=== PATIENT | female | born 1935 | race Hispanic/Latino ===

== ENCOUNTER 2020-06-01 14:33 | Outpatient (CLI) | payer MEDICARE, SELFPAY ==
--- NOTE | ~2020-06-01 | MM_ITS ---
EXAMINATION: MM screening [facility] BI w ronaldo HISTORY: Screening mammogram TECHNIQUE: Craniocaudal and mediolateral oblique 3-D tomosynthesis images were obtained and synthetic 2-D images were generated. CAD analysis was submitted and interpreted. COMPARISON: 05/11/2019, 05/08/2018, 05/05/2017 BREAST PARENCHYMAL COMPOSITION: There are scattered areas of fibroglandular density. FINDINGS: There is no evidence of suspicious mass, calcification, or architectural distortion to sugg est malignancy in either breast. There has been no suspicious interval change. IMPRESSION: 1. No mammographic evidence of malignancy. 2. Recommend routine screening mammography while the patient remains in good health. BI-RADS Category 1: Negative Reviewed, dictated and finalized at location A. IMPRESSION: 1. No mammographic evidence of malignancy. 2. Recommend routine screening mammography while the patient remains in good he alth. BI-RADS Category 1: Negative
== END 2020-06-01 14:34 | disposition home or self-care (01) ==
LOC: ANHIMG 14:37
PROVIDERS: PCP Family Medicine; Visit Provider Obstetrics & Gynecology
DX: Z12.31 Encounter for screening mammogram for malignant neoplasm of breast (principal)
CPT/HCPCS: 77063; 77067

== ENCOUNTER 2021-01-31 12:33 | Outpatient (CLI) | payer OTHER, SELFPAY ==
--- NOTE | ~2021-01-31 | DEXA_ITS ---
Bone Density Report Name: Jeimy Romano Age: 85 Sex: Female Ethnicity: White Date of : 1935 Indication: postmenopausal; height loss; prior fracture; Referring Provider: Bryn Nicolas Study: Bone densitometry was performed. Exam Date: January 31, 2021 Accession number: [id number] Bone Density: Region BMD T-score Z-score Classification AP Spine (L1-L4) 0.974 -0.7 2.1 Normal Femoral Neck (Left) 0.553 -2.7 -0.2 Osteoporosis Total Hip (Left) 0.775 -1.4 0.9 Osteopenia Total Hip Bilateral Avg 0.786 -1.3 0.9 Osteopenia Femoral Neck (Right) 0.594 -2.3 0.1 Osteopenia Total Hip (Right) 0.797 -1.2 1.0 Osteopenia World Health Organization criteria for BMD impression classify patients as: Normal (T-score at or above -1.0), Osteopenia (T-score between -1.0 and -2.5), or Osteoporosis (T-score at or below -2.5). 10-year Fracture Risk: FRAX not reported because: Some T-score for Spine Total or Hip Total or Femoral Neck at or below -2.5 Clinical Information Provided by Patient: Has had a low trauma fracture Has used the following medications: Fosamax (i.e. alendronate), Vitamin D, Calcium Patient maximum height was 64 Menopause Age: 52 No regular weight bearing exercise Drinks caffeinated beverages Onset of menses at age 15 Number of children 3 Impression: The patient has established osteoporosis, based on the Left Femoral Neck T-score and the existence of a prior fracture. The patient has risk factors, including: previous fracture. Discussion: HIGH RISK OF FRACTURE. BONE DENSITY IS UNDESIRABLY LOW AT ONE OR MORE SKELETAL SITES, CONSISTENT WITH POSTMENOPAUSAL OSTEOPOROSIS. This patient's lowest T-score, in a patient who has previously fractured, meets the World Health Organization's (WHO) criteria for severe osteoporosis. In untreated patients, the risk of osteoporotic fracture increases approximately two-fold for each 1.0 SD decrease in T-score. Low bone density is not the only risk factor for fracture; also consider factors such as patient's age, frailty or poor health, risk of falling, risk of injury, previous osteoporotic fracture, family history of osteoporosis, cigarette smoking, low body weight, etc. Not everyone with low bone mineral density has osteoporosis; osteomalacia and other metabolic bone disorders should also be considered. Patients who have osteoporosis should be evaluated for specific diseases and conditions (secondary causes) that may cause or contribute to bone loss. The [place] [employer] Endocrinologists (AACE) and National Osteoporosis Foundation (NOF) recommend pharmacologic intervention for all postmenopausal women whose T-score is in this range. The patient should follow a healthful lifestyle (good nutrition with adequate calcium and vitamin D, and appropriate weight-bearing exercise).
== END 2021-01-31 12:34 | disposition home or self-care (01) ==
PROVIDERS: PCP Family Medicine; Visit Provider Family Medicine
DX: Z78.0 Asymptomatic menopausal state (principal); M81.0 Age-related osteoporosis without current pathological fracture; M85.852 Other specified disorders of bone density and structure, left thigh; M85.851 Other specified disorders of bone density and structure, right thigh
CPT/HCPCS: 77080

== ENCOUNTER 2021-06-04 14:43 | Outpatient (CLI) | payer OTHER, SELFPAY ==
--- NOTE | ~2021-06-04 | MM_ITS ---
EXAMINATION: MM screening [facility] BI w ronaldo HISTORY: Screening TECHNIQUE: Craniocaudal and mediolateral oblique 3-D tomosynthesis images were obtained and synthetic 2-D images were generated. CAD analysis was submitted and interpreted. COMPARISON: Comparison to multiple prior studies sequentially, with oldest reviewed study dated 05/01. BREAST PARENCHYMAL COMPOSITION: There are scattered areas of fibroglandular density. FINDINGS: There is no evidence of suspicious mass, calcification, or architectural distortion to sugg est malignancy in either breast. There has been no suspicious interval change. IMPRESSION: 1. No mammographic evidence of malignancy. 2. Recommend routine screening mammography in one year. BI-RADS Category 1: Negative Reviewed, dictated and finalized at location A.
== END 2021-06-04 14:44 | disposition home or self-care (01) ==
LOC: ANHIMG 14:45
PROVIDERS: PCP Family Medicine; Visit Provider Family Medicine
DX: Z12.31 Encounter for screening mammogram for malignant neoplasm of breast (principal)
CPT/HCPCS: 77063; 77067

== ENCOUNTER 2022-01-06 21:49 | Inpatient (IN) | payer OTHER, SELFPAY ==
--- NOTE | ~2022-01-06 | CT_ITS ---
EXAMINATION: CT abdomen pelvis w con DATE: 01/06/2022 23:31 INDICATION: Epigastric abdominal pain. Vomiting. TECHNIQUE: Computed tomography (CT) of the abdomen and pelvis was performed with 100 mL Omnipaque 350 intravenous contrast. Automated exposure control and iterative reconstruction technique were employe d. The dose-length product was 571.94 mGy-cm. COMPARISON: CT abdomen and pelvis 09/14/2010 FINDINGS: The visualized portions of the lung bases demonstrate mild atelectasis. There are two 5 mm nodules in right lung lower lobe, likely benign. No pleural effusion. The heart size is normal. No pe ricardial effusion. The gallbladder is distended. There is mild intrahepatic and extrahepatic biliary duct dilatation. The spleen, pancreas, and adrenal glands are normal. There is cortical thinning of the kidneys. There is a 5 mm cyst in right kidney. There is diverticulosis of the colon without evide nce of diverticulitis. The appendix is normal. There are no pathologically enlarged lymph nodes. Ther e is no free intraperitoneal fluid. There is an umbilical hernia containing fat. There is severe lumb ar spondylosis. IMPRESSION: 1. Gallbladder distention, which may secondary to fasting or acute cholecystitis. Correlate with phys ical exam. 2. Mild intrahepatic and extrahepatic biliary duct dilatation. 3. Umbilical hernia containing fat. Reviewed, dictated and finalized at location A. IMPRESSION: 1. Gallbladder distention, which may secondary to fasting or acute cholecystiti s. Correlate with physical exam. 2. Mild intrahepatic and extrahepatic biliary duct dilatation. 3. Umbilical hernia containing fat.
--- NOTE | ~2022-01-06 | XR_ITS ---
EXAMINATION: XR ERCP EXAM DATE: 01/08/2022 13:56 INDICATION: Choledocholithiasis. Gallbladder wall thickening, edema TECHNIQUE: Fluoroscopy used during XR ERCP performed by Dr. Aguila Ashby MD. Radiologist was no t present for the imaging or procedure. Total fluoroscopic time of 62 seconds. The DAP for this pro cedure was 0.52 mGym2. A total of 0.52 images sent to PACS from the exam. FINDINGS: The ampulla of Vater was cannulated, injected. No common bile duct filling defects or foca l strictures were identified on images available. Correlate with procedure note. IMPRESSION: Fluoroscopy used during XR ERCP. Reviewed, dictated and finalized at location A.
--- NOTE | ~2022-01-06 | MR_ITS ---
EXAMINATION: MR MRCP wo/w con/w 3D wo ind DATE: 01/07/2022 15:30 INDICATION: Abdominal pain. Elevated liver function tests. TECHNIQUE: Magnetic resonance imaging (MRI) of the abdomen was performed without and with 14 mL Multi jeovanny intravenous contrast. Sequences included coronal T2-weighted SS-FSE, coronal T2-weighted FS SS- FSE, coronal T2-weighted FS FIESTA, axial T2-weighted FS FIESTA, axial T2-weighted FIESTA, sagittal T 2-weighted SS-FSE, axial T1-weighted dual-echo FSPGR, axial T2-weighted SS-FSE, axial T1-weighted LAV A, axial T2-weighted STIR FSE. Thick-slab T2-weighted FRFSE-XL images were obtained for magnetic reso nance cholangiopancreatography (MRCP). Rotating maximum intensity projection 3-D reconstructions of t he volumetric data were created by the technologist. Postcontrast sequences included a time course of axial T1-weighted LAVA. COMPARISON: None. FINDINGS: ABDOMEN MRI: Heart size is normal. No pericardial or pleural effusion. Likely mild atelectasis at the lingula. 5 m m T2 hyperintense nonenhancing cysts at the caudal tip of the right hepatic lobe. Mild periportal tera ma in the liver. There is prominent edematous gallbladder wall thickening which measures up to 11 mm in thickness. No cholelithiasis. The pancreatic and interstitial pancreatic edema greatest at the hea d and uncinate process of the pancreas suspicious for acute interstitial pancreatitis. No loculated a cute peripancreatic fluid collections or abscess. T2 hyperintense nonenhancing renal cysts measuring 5 mm on the right and 6 mm on the left. Visualized portions of the bowels are normal. No pathological ly enlarged abdominal lymphadenopathy. Moderate to severe lumbar spondylosis. ABDOMEN MRCP: Common bile duct measures up to 7 mm in maximal diameter. Mild periportal edema. No significant intra hepatic biliary ductal dilation. The main pancreatic duct is normal in caliber. IMPRESSION: 1. Nonspecific prominent edematous-appearing gallbladder wall thickening without evident cholelithias is. Differential would include acute acalculus cholecystitis, reactive edema related to interstitial pancreatitis or edema related to heart failure, liver failure, renal failure, sepsis or other general ized edema forming states. 2. Nonspecific peripancreatic and pancreatic interstitial edema which could be due to acute interstit ial pancreatitis or other nonspecific edema related to the same etiology as the gallbladder wall thic feliz. Reviewed, dictated and finalized at location B. IMPRESSION: 1. Nonspecific prominent edematous-appearing gallbladder wall thickening withou t evident cholelithiasis. Differential would include acute acalculus cholecysti tis, reactive edema related to interstitial pancreatitis or edema related to he art failure, liver failure, renal failure, sepsis or other generalized edema fo rming states. 2. Nonspecific peripancreatic and pancreatic interstitial edema which could be due to acute interstitial pancreatitis or other nonspecific edema related to th e same etiology as the gallbladder wall thickening.
--- NOTE | ~2022-01-06 | XR_ITS ---
EXAMINATION: XR chest 2V EXAM DATE: 01/09/2022 09:20 INDICATION: Cough. TECHNIQUE: Frontal and lateral projections of the chest obtained and reviewed. Comparison is made to prior examination from 01/05/2009. Correlation was made with CT abdomen pelvis 01/06/2022. FINDINGS: Some small scattered left lower lobe opacities which are not present on prior study, also left pleural blunting which is probably a small pleural effusion. These findings may also have develo ped correlating to a CT scan from 3 days ago. The lungs are hyperinflated which can be seen with [employer] howard obstructive pulmonary disease (a clinical diagnosis of functional impairment), but is not diagnos tic of it. There is no pneumothorax suspected. Cardiomediastinal silhouette is normal. There are no o sseous abnormalities identified. IMPRESSION: 1. Scattered left basilar atelectasis or pneumonia. 2. Small left pleural effusion. 3. Hyperinflation. Reviewed, dictated and finalized at location A.
--- NOTE | ~2022-01-06 | US_ITS ---
EXAMINATION: US abdomen limited EXAM DATE: 01/07/2022 08:22 INDICATION: RUQ pain, epigastric pain, transaminitis. TECHNIQUE: Multiple grayscale and Doppler images of the abdomen right upper quadrant were obtained (b y a technologist who performed the scan) and subsequently reviewed. Correlation is made to CT from 01/06/2022. FINDINGS: The pancreatic head and body are normal in appearance. The pancreatic tail is not visualized. The l iver has normal echogenicity and contour. There are no focal liver lesions identified. There is no evidence of intrahepatic biliary duct dilation. Portal venous flow was seen in the hepatopedal, nor mal direction and has normal Doppler waveform. No right-sided hydronephrosis. Common bile duct measures 5 mm, which is normal. The gallbladder wall is severely thickened at up to 10 mm with small anechoic cystic spaces. Differential diagnosis includes interstitial edema, chronic liver disease, acute or chronic cholecystitis. No calcified cholelithiasis. Technologist performin g exam reports patient did not demonstrate sonographic Malone's sign. Please note that this sign is less reliable in patients who have received pain medication. IMPRESSION: Severely thickened gallbladder wall, moderate distention. Differential diagnosis includes interstitial edema, chronic liver disease, acute or chronic cholecystitis. No sonographic Malone's s ign was demonstrated. Clinical correlation, consider HIDA scan. Reviewed, dictated and finalized at location A. IMPRESSION: Severely thickened gallbladder wall, moderate distention. Different ial diagnosis includes interstitial edema, chronic liver disease, acute or senior front end web developer howard cholecystitis. No sonographic Malone's sign was demonstrated. Clinical kalee elation, consider HIDA scan.
[2022-01-06 21:53] VITALS: BP 141/67; PULSE 74; RESP 18; TEMP 36.2; O2SAT 100
--- NOTE | 2022-01-06 22:06 | ECG_ITS ---
Measurements Intervals [employer] Rate: 62 P: 63 UT: 180 QRS: -2 QRSD: 93 T: 61 QT: 424 QTc: 433 Interpretive Statements SINUS RHYTHM LOW QRS VOLTAGE IN PRECORDIAL LEADS Electronically Signed On 01-07-2022 14:27:48 CDT by Mike Frost M.D.
[2022-01-06 22:26] VITALS: BP 113/61; PULSE 65; RESP 18; O2SAT 97
--- NOTE | 2022-01-06 22:47 | ED.ABDPAIN ---
HPI - Abdominal Pain General Chief Complaint: Abdominal Pain Stated Complaint: epigastric pain, nausea Time Seen by Provider: 01/06/22 22:05 Source: patient Mode of arrival: ambulatory Limitations: no limitations History of Present Illness HPI narrative: This is an 86-year-old female that presents to the emergency department for epigastric pain noted over the last couple of hours. Associated with nausea and vomiting. Reports the pain is sharp in nature. Denies fever, shortness of breath, diarrhea, or dysuria. Related Data Allergies Allergy/AdvReac Type Severity Reaction Status Date / Time No Known Allergies Allergy Unknown NONE Verified 12/31/21 13:21 Review of Systems Review of Systems: CONSTITUTIONAL: Denies fever CARDIOVASCULAR: Reports chest/epigastric pain RESPIRATORY: Denies dyspnea. GASTROINTESTINAL: Reports abdominal pain, nausea, vomiting GENITOURINARY: Denies dysuria All systems reviewed & are unremarkable except as noted in HPI and below PMFSH Past Medical History Medical History (Updated 01/07/22 @ 00:56 by Suzie Downs PA-C) Acquired hypothyroidism CKD (chronic kidney disease), stage III Gastro-esophageal reflux disease without esophagitis Hy kid NOS w cr kid I-IV Obesity Pure hypercholesterolemia Surgical History Surgical History History of tonsillectomy Family History Family History Sibling Patient's sister is in good health Patient's brother is in good health Hypertension Family history of diabetes mellitus in first degree relative Family history of primary malignant neoplasm of liver Father Family history of malignant neoplasm Mother Family history of malignant neoplasm Social History Social History Smoking status: Never smoker Second hand tobacco smoke exposure: No Alcohol intake: current Drinks per week: 1 Substance use: never Substance use type: does not use Gender identity (if verbalized by the patient): Female Sexual Orientation (if Verbalized by the Patient): Straight or Heterosexual Exam Narrative: GENERAL: Elderly, well-nourished, and in no acute distress. HEAD: Normocephalic, atraumatic. EYES: EOMI. CHEST: Clear to auscultation. No respiratory distress. No wheezes rales or rhonchi HEART: Regular rate and rhythm. No murmur heard. Normal peripheral pulses. ABDOMEN: Soft, nondistended, normal active bowel sounds. Tender to palpation in the epigastrium and right upper quadrant, without guarding EXTREMITIES: Normal range of motion. No edema. SKIN: Warm, dry, no rash. NEURO: No focal deficits. Alert and oriented x3. PSYCH: Normal mood and affect Course Consultations Consultation #1: Spoke with general surgery, Dr. Sheppard who will consult. Would like ultrasound ordered and repeat labs. Date: 01/07/22 Consultation #2: Spoke with hospitalist about patient and work-up who accepts admission Date: 01/07/22 Vital Signs Vital signs: Vital Signs Temperature 97.2 F L 01/06/22 21:53 Pulse Rate 74 01/06/22 21:53 Respiratory Rate 18 01/06/22 21:53 Blood Pressure 141/67 H 01/06/22 21:53 Pulse Oximetry 100 01/06/22 21:53 Temperature 97.2 F L 01/06/22 21:53 Pulse Rate 70 01/07/22 00:28 Respiratory Rate 20 01/07/22 00:28 Blood Pressure 114/54 L 01/07/22 00:28 Pulse Oximetry 98 01/07/22 00:28 MDM - Abdominal Pain MDM Narrative Medical decision making narrative: Patient presents to the emergency department for epigastric pain, nausea and vomiting. Onset this evening. She is afebrile and nontoxic-appearing. CBC with leukocytosis to 11.6. Metabolic panel with hypokalemia and transaminitis. Lipase is normal. EKG without acute ST changes and baseline troponin is negative. CT scan of the abdomen and pelvis shows gallbladder distention with subtle focal irregular wall thic
[2022-01-06 22:55] LABS: Basophils Absolute Auto 0.1 K/mm3 (0.0-0.1); Basophils Percent Auto 0.7 % (0.2-1.2); Eosinophils Absolute Auto 0.2 K/mm3 (0-0.3); Eosinophils Percent Auto 1.7 % (0-4.4); Hematocrit 35.8 % (37.0-47.0); Hemoglobin 12.6 g/dL (12.0-15.0); Immature Granulocyte Absolute 0.05 K/mm3 (0.00-0.031); Immature Granulocyte Percent A 0.4 % (0-0.5); Lymphocytes Absolute Auto 1.94 K/mm3 (0.9-3.2); Lymphocytes Percent Auto 16.7 % (18.3-44.2); Mean Corpuscular HGB Conc 35.2 g/dl (32-36); Mean Corpuscular Hemoglobin 32.8 pg (26-34); Mean Corpuscular Volume 93.2 fl (80-100); Mean Platelet Volume 9.4 fl (7.4-10.4); Monocytes Absolute Auto 0.8 K/mm3 (0.1-0.6); Neutrophils Absolute Auto 8.6 K/mm3 (1.3-6.7); Neutrophils Percent Auto 73.5 % (45.5-73.1); Platelet Count Result 291 k/mm3 (150-375); Red Blood Count 3.84 M/mm3 (4.2-5.4); Red Cell Distribution Width 12.3 % (11.5-14.5); White Blood Count 11.6 K/mm3 (4.5-10.0)
[2022-01-06 23:01] LABS: Add Urine Microscopic? NO; Appearance Urine Clear (Clear); Bilirubin Urine Negative (Negative); Blood Urine Negative (Negative); Color Urine Yellow (Yellow); Glucose Urine UA Negative (Negative); Ketones Urine Negative (Negative); Leukocyte Esterase Ur Negative LEU/UL (Negative); Nitrate Urine Negative (Negative); Protein Urine Negative (Negative); Specific Grav Ur 1.013 (1.001-1.035); Urobilinogen Urine Negative mg/dL (<2.0)
[2022-01-06 23:05] LABS: Prothrombin Time 12.4 Seconds (11.1-14.7)
[2022-01-06 23:06] LABS: Alanine Aminotransferase 83 U/L (4-35); Albumin Level 4.4 g/dL (3.5-5.1); Alkaline Phosphatase 57 U/L (38-126); Anion Gap 7 mmol/L (8-16); Aspartate Amino Transferase 226 U/L (14-36); Bilirubin,Total 1.1 mg/dL (0.2-1.3); Blood Urea Nitrogen 11 mg/dL (7-17); Calcium 9.1 mg/dL (8.4-10.2); Carbon Dioxide 25 mmol/L (22-30); Chloride 96 mmol/L (98-107); Estimated CRCL calculation 38 ml/min; Estimated Glomerular Filt Rate 60; Glucose 134 mg/dL (65-110); Lipase 133 U/L (23-300); Partial Thromboplastin Time 27.1 SECONDS (22.3-36.8); Potassium 3.2 mmol/L (3.4-5.0); Sodium 128 mmol/L (137-145)
[2022-01-06 23:36] VITALS: BP 123/52; PULSE 69; RESP 18; O2SAT 100
[2022-01-06] MEDS: ONDANSETRON INJ 4 MG/2 ML VIAL IV PUSH (23:37)
[2022-01-06] MEDS: MORPHINE SULFATE (*CRX) 2 MG/ML INJ IV PUSH (23:37)
[2022-01-06 23:38] LABS: Troponin I < 0.012 ng/mL (0.000-0.034)
[2022-01-07] VITALS (7 sets, daily range): BP systolic 105–138; BP diastolic 51–64; PULSE 69–97; RESP 14–20; TEMP 36.2–37.7; O2SAT 92–99; BMI 29.2
[2022-01-07] MEDS: SODIUM CHLORIDE 0.9% IV 500 ML 999 ML IV CONT (00:26)
[2022-01-07 00:38] LABS: Lactic Acid Reflex 1.2 mmol/L (0.7-2.1)
--- NOTE | 2022-01-07 02:07 | ADMGEN ---
This patient, Jeimy Romano, was admitted to [facility] Surg Room 329-01 at 0200. Patient/family oriented to hospital policies and general routines including ID bracelet, bed and alarms, visiting hours, pain management, procedures, bathroom and other care routines, personal items, smoking policy, room service/diet, and visiting hours. Information on how to activate the Rapid Response Team has been discussed. Patient/Family are encouraged to report perceived risks to care and to ask questions if they do not understand what they are told or what they should do.
[2022-01-07] MEDS: POTASSIUM CHLORIDE INJ 40 MEQ in SODIUM CHLORIDE 0.9% IV 500 ML 130 MEQ IVPB (02:52)
--- NOTE | 2022-01-07 09:01 | PM.IMHP ---
H&P: HPI History of Present Illness Date/Time: 01/07/22 0850 This very pleasant 86 year old female patient with significant PMH of Osteoporosis, HTN, GERD, hypothyroidism and HLD, presented to the ER last evening with complaints of having acute abdominal pain. She endorses that she ate Vegetable soup at 1700 last evening then began having acute pain in the epigastric and RUQ regions around 1900 with associated N/V. She denies any fevers, sick contacts, diarrhea or any other complaints such as CP. She came to the ER where workup showed a normal EKG, negative troponin's, a mildly elevated WBC count of 11.6, elevated transaminases with AST at 226 and ALT at 83, negative urine, and normal Lipase at 133. She is also hyponatremic at 128. CT of abdomen and pelvis showed gall bladder distention with thickening in a focal location in the front. The CBD and intrahepatic ducts are prominent and measure up to [address] Sheppard was consulted for General Surgery and he ordered an US of the RUQ that showed a severely thickened gallbladder wall, moderate distention present. The differential diagnosis includes interstitial edema, chronic liver disease, acute or chronic cholecystitis. The pt at this time continues to complain of pain in the epigastric regions and in the RUQ. She has nausea currently. No other complaints such as CP, dyspnea or urinary issues to report. Chief Complaint: Abdominal Pain Review of Systems Review of Systems: All systems reviewed & are unremarkable except as noted in HPI and below PMFSH Past Medical History Medical History (Updated 01/07/22 @ 09:13 by MARY Gallardo) Acquired hypothyroidism CKD (chronic kidney disease), stage III Gastro-esophageal reflux disease without esophagitis Hy kid NOS w cr kid I-IV Hypertension Obesity Pure hypercholesterolemia Surgical History Surgical History History of tonsillectomy Family History Family History Sibling Patient's sister is in good health Patient's brother is in good health Hypertension Family history of diabetes mellitus in first degree relative Family history of primary malignant neoplasm of liver Father Family history of malignant neoplasm Mother Family history of malignant neoplasm Social History Social History Smoking status: Never smoker Second hand tobacco smoke exposure: No Alcohol intake: never Drinks per week: 1 Substance use: never Substance use type: does not use Gender identity (if verbalized by the patient): Female Sexual Orientation (if Verbalized by the Patient): Straight or Heterosexual Spiritual care concerns: No Meds Home Medications and Allergies Home Medications Medication Instructions Recorded Confirmed Type pravastatin 40 mg tablet 40 mg PO QPM #90 tablet 10/01/21 01/07/22 Rx alendronate 70 mg tablet 70 mg PO WEEKLY #12 tablet 10/22/21 01/07/22 Rx hydrochlorothiazide 12.5 mg capsule 12.5 mg PO DAILY #90 cap 11/01/21 01/07/22 Rx levothyroxine 75 mcg tablet 75 mcg PO DAILY #90 tablet 11/13/21 01/07/22 Rx famotidine 40 mg tablet 40 mg PO DAILY #90 tablet 12/31/21 01/07/22 Rx amlodipine 10 mg PO DAILY 01/07/22 01/07/22 History Allergies Allergy/AdvReac Type Severity Reaction Status Date / Time No Known Allergies Allergy Unknown NONE Verified 12/31/21 13:21 Vital Signs Vital Signs - 24 hr 01/06/22 21:53 01/06/22 22:26 01/06/22 23:36 Temperature 97.2 F L Pulse Rate 74 65 69 Respiratory Rate 18 18 18 Blood Pressure 141/67 H 113/61 123/52 L Pulse Oximetry 100 97 100 01/07/22 00:28 01/07/22 01:06 01/07/22 02:00 Temperature 97.1 F L Pulse Rate 70 69 86 Respiratory Rate 20 18 18 Blood Pressure 114/54 L 133/58 L 138/64 Pulse Oximetry 98 98 99 01/07/22 06:00 Temperature 98.1 F Pulse Rate 97 Respirato
[2022-01-07 10:06] LABS: Basophils Percent Auto 0.2 % (0.2-1.2); Eosinophils Percent Auto 0.1 % (0-4.4); Hematocrit 34.9 % (37.0-47.0); Immature Granulocyte Absolute 0.05 K/mm3 (0.00-0.031); Immature Granulocyte Percent A 0.4 % (0-0.5); Lymphocytes Absolute Auto 0.63 K/mm3 (0.9-3.2); Lymphocytes Percent Auto 4.7 % (18.3-44.2); Mean Corpuscular HGB Conc 34.4 g/dl (32-36); Mean Corpuscular Hemoglobin 32.7 pg (26-34); Mean Corpuscular Volume 95.1 fl (80-100); Mean Platelet Volume 9.6 fl (7.4-10.4); Monocytes Absolute Auto 0.5 K/mm3 (0.1-0.6); Monocytes Percent Auto 3.7 % (2.6-8.5); Neutrophils Absolute Auto 12.2 K/mm3 (1.3-6.7); Neutrophils Percent Auto 90.9 % (45.5-73.1); Platelet Count Result 262 k/mm3 (150-375); Red Blood Count 3.67 M/mm3 (4.2-5.4); Red Cell Distribution Width 12.6 % (11.5-14.5); White Blood Count 13.4 K/mm3 (4.5-10.0)
[2022-01-07 10:36] LABS: Albumin Level 3.8 g/dL (3.5-5.1); Alkaline Phosphatase 71 U/L (38-126); Anion Gap 7 mmol/L (8-16); Bilirubin,Total 2.2 mg/dL (0.2-1.3); Blood Urea Nitrogen 11 mg/dL (7-17); Calcium 8.5 mg/dL (8.4-10.2); Carbon Dioxide 24 mmol/L (22-30); Chloride 99 mmol/L (98-107); Estimated CRCL calculation 34 ml/min; Estimated Glomerular Filt Rate 53; Glucose 119 mg/dL (65-110); Potassium 3.8 mmol/L (3.4-5.0); Sodium 130 mmol/L (137-145)
[2022-01-07 11:00] LABS: Alanine Aminotransferase 1066 U/L (4-35); Aspartate Amino Transferase 1809 U/L (14-36)
[2022-01-07] MEDS: SODIUM CHLORIDE 0.9% IV 1,000 ML 100 ML IV CONT ×2 (11:03→23:29)
--- NOTE | 2022-01-07 11:21 | PM.CNGS ---
Assessment and Plan Assessment and plan (1) Acute cholecystitis: Code(s): K81.0 - Acute cholecystitis Status: Acute Assessment and Plan: CT and RUQ ultrasound reviewed and discussed with the patient in detail. There is evidence of gallbladder wall thickening and distention, but no definitive cholelithiasis noted. Also noted was mild intrahepatic and extrahepatic biliary duct dilatation on CT, although normal CBD on US. Her abdominal pain is resolving, although her WBC is up to 13K and LFTs are trending up this morning. Will order MRCP and consult GI. Discussed treatment plan with the patient. Continue broad-spectrum IV antibiotics, IV fluids, analgesics, and NPO status. Will await MRCP results to decipher further plan of care. (2) Transaminitis: Code(s): R74.01 - Elevation of levels of liver transaminase levels Status: Acute Assessment and Plan: AST and ALT mildly elevated on admission. Repeat labs today showed total bilirubin up to 2.2 and AST/ALT significantly elevated. Will order MRCP, consult GI, and keep patient NPO. (3) Hyponatremia: Code(s): E87.1 - Hypo-osmolality and hyponatremia Status: Acute Assessment and Plan: Sodium 128 on admission and now up to 130. Continue IV fluids, management per hospitalist, monitor labs. (4) Hypertension: Qualifiers: Hypertension type: unspecified Qualified Code(s): I10 - Essential (primary) hypertension Code(s): I10 - Essential (primary) hypertension Status: Acute Assessment and Plan: Management per Hospitalist. Home medications on hold while NPO. Additional Plan I have discussed the patient's case and plan of care with Dr. Sheppard. History of Present Illness Consult details Consult date: 01/07/22 Reason for consult: other (Possible acute cholecystitis, elevated LFTs) Requesting physician: Suzie Downs PA-C Narrative: This is an 86-year-old female who presented to the emergency department last night complaining of epigastric abdominal pain. She reports eating vegetable soup and crackers around 5:00 p.m. last night. She then had a sudden onset of epigastric abdominal pain radiating to her back around 7:00 p.m.. She reports associated nausea and chills, but no vomiting at home. The pain ultimately lead her to the ER for evaluation. While in the ER, she began vomiting. She reports having a similar pain that was more mild and resolved spontaneously a few times in the past. CT scan of the abdomen and pelvis showed gallbladder distention without evidence of cholelithiasis, and mild intrahepatic and extrahepatic biliary duct dilatation. [place] [address], sodium 128, potassium 3.2, total bilirubin 1.1, AST 226, ALT 83, alk-phos 57, normal lipase, and lactic acid 1.2. The patient was admitted to the hospitalist service and started on IV Zosyn, IV fluids, analgesics, and made NPO. Our service has been consulted for possible acute cholecystitis with elevated LFTs. Right upper quadrant abdominal ultrasound showed severely thickened gallbladder wall with moderate distension and still no calcified cholelithiasis noted. The patient is now seen on the medical floor. I ordered repeat labs today. She reports her abdominal pain has nearly resolved, with just some residual soreness in the epigastric area following her ultrasound this morning. She is still having intermittent nausea that is very mild and has not vomited since being in the ER. She reports her bowels have been moving normally. No other complaints at this time. Review of Systems Review of Systems: All systems reviewed & are unremarkable except as noted in HPI and below Constitutional: Constitutional: Reports as per HPI, Reports chills, Denies fatigue and Denies fever(s) Eyes: Eyes: Reports no additional eye complaints ENT: Reports system reviewed and no additional complaints, except as documented Cardiovascular: [facility]
--- NOTE | 2022-01-07 16:39 | WPDGICN ---
Assessment and Plan Assessment and plan (1) Acute cholecystitis: Code(s): K81.0 - Acute cholecystitis Status: Acute Assessment and Plan: the jump in her transaminase levels suggest that she probably has choledocholithiasis. We are awaiting results of her MRCP. If negative then she will probably simply have a cholecystectomy (2) Transaminitis: Code(s): R74.01 - Elevation of levels of liver transaminase levels Status: Acute Assessment and Plan: I doubt that she has chronic liver disease because the elevation of enzymes associated with acute abdominal pain and there has been a marked increase overnight which would not be consistent with chronic disease. Acute viral hepatitis could cause such elevation but then would not cause the pain that she has been having. I told the patient that she may need an ERCP. I explained the use of contrast material the use of cautery to open up the ampulla and possibilities of bleeding or perforation or abscess causing pancreatitis, which could be severe. (3) Chronic kidney disease: Code(s): N18.9 - Chronic kidney disease, unspecified Status: Acute Assessment and Plan: Stage III according to the record. GI Consult Note Consult date/time: 01/07/22 16:39 HPI: Jeimy Romano is a 86 year old female was admitted with epigastric pain radiating to her back. This began last evening and was accompanied by nausea and vomiting. She states that she has had episodes like this in the past but never 1 quite so severe as this 1 lasted all night long. She has CT scan that showed gallbladder distention and prominent intrahepatic ducts. These findings were confirmed with an ultrasound. She has just gone down for an MRCP and that result is pending. She has had intermittent episodes like this in the past but they would always for subside within an hour so or never quite as severe. She has never been jaundiced never had liver disease or hepatitis. Today, her transaminases which were mildly elevated yesterday have increased over 1000 each. AST is 1809. ALT is 1066. Review of Systems Review of Systems: All systems reviewed & are unremarkable except as noted in HPI and below [facility] Past Medical History Medical History Acquired hypothyroidism CKD (chronic kidney disease), stage III Gastro-esophageal reflux disease without esophagitis Hy kid NOS w cr kid I-IV Hypertension Obesity Pure hypercholesterolemia Surgical History Surgical History History of tonsillectomy Family History Family History Sibling Patient's sister is in good health Patient's brother is in good health Hypertension Family history of diabetes mellitus in first degree relative Family history of primary malignant neoplasm of liver Father Family history of malignant neoplasm Mother Family history of malignant neoplasm Social History Social History Smoking status: Never smoker Second hand tobacco smoke exposure: No Alcohol intake: never Drinks per week: 1 Substance use: never Substance use type: does not use Gender identity (if verbalized by the patient): Female Sexual Orientation (if Verbalized by the Patient): Straight or Heterosexual Spiritual care concerns: No Meds Home Medications and Allergies Home Medications Medication Instructions Recorded Confirmed Type pravastatin 40 mg tablet 40 mg PO QPM #90 tablet 10/01/21 01/07/22 Rx alendronate 70 mg tablet 70 mg PO WEEKLY #12 tablet 10/22/21 01/07/22 Rx hydrochlorothiazide 12.5 mg capsule 12.5 mg PO DAILY #90 cap 11/01/21 01/07/22 Rx levothyroxine 75 mcg tablet 75 mcg PO DAILY #90 tablet 11/13/21 01/07/22 Rx famotidine 40 mg tablet 40 mg PO DAILY #90 tablet 12/31/21 01/07/22 Rx amlodipine 1
[2022-01-08] VITALS (10 sets, daily range): BP systolic 89–142; BP diastolic 48–80; PULSE 60–79; RESP 16–26; TEMP 36.3–37; O2SAT 95–99
[2022-01-08 06:18] LABS: Basophils Percent Auto 0.3 % (0.2-1.2); Eosinophils Absolute Auto 0.1 K/mm3 (0-0.3); Eosinophils Percent Auto 0.7 % (0-4.4); Hematocrit 31.3 % (37.0-47.0); Hemoglobin 10.9 g/dL (12.0-15.0); Immature Granulocyte Absolute 0.07 K/mm3 (0.00-0.031); Immature Granulocyte Percent A 0.6 % (0-0.5); Lymphocytes Absolute Auto 1.02 K/mm3 (0.9-3.2); Lymphocytes Percent Auto 8.4 % (18.3-44.2); Mean Corpuscular HGB Conc 34.8 g/dl (32-36); Mean Corpuscular Hemoglobin 33.4 pg (26-34); Mean Platelet Volume 9.7 fl (7.4-10.4); Monocytes Absolute Auto 0.7 K/mm3 (0.1-0.6); Monocytes Percent Auto 5.4 % (2.6-8.5); Neutrophils Absolute Auto 10.3 K/mm3 (1.3-6.7); Neutrophils Percent Auto 84.6 % (45.5-73.1); Platelet Count Result 207 k/mm3 (150-375); Red Blood Count 3.26 M/mm3 (4.2-5.4); Red Cell Distribution Width 13.2 % (11.5-14.5); White Blood Count 12.1 K/mm3 (4.5-10.0)
[2022-01-08 06:41] LABS: Alanine Aminotransferase 602 U/L (4-35); Albumin Level 3.3 g/dL (3.5-5.1); Alkaline Phosphatase 68 U/L (38-126); Anion Gap 7 mmol/L (8-16); Aspartate Amino Transferase 541 U/L (14-36); Bilirubin,Total 3.7 mg/dL (0.2-1.3); Blood Urea Nitrogen 10 mg/dL (7-17); Calcium 8.1 mg/dL (8.4-10.2); Carbon Dioxide 23 mmol/L (22-30); Chloride 105 mmol/L (98-107); Estimated CRCL calculation 34 ml/min; Estimated Glomerular Filt Rate 53; Glucose 90 mg/dL (65-110); Potassium 3.2 mmol/L (3.4-5.0); Sodium 135 mmol/L (137-145)
[2022-01-08 06:56] LABS: Lipase 3411 U/L (23-300)
--- NOTE | 2022-01-08 07:55 | WPDGIPROGNO ---
Progress Note: A&P Assessment and Plan (1) Acute cholecystitis: Code(s): K81.0 - Acute cholecystitis Status: Acute Assessment and Plan: the jump in her transaminase levels suggest that she probably has choledocholithiasis. We are awaiting results of her MRCP. If negative then she will probably simply have a cholecystectomy .01/08 Although MRCP does not show it, I suspect she has choledocholithiasis given the fact she denies pancreatitis (2) Transaminitis: Code(s): R74.01 - Elevation of levels of liver transaminase levels Status: Acute Assessment and Plan: I doubt that she has chronic liver disease because the elevation of enzymes associated with acute abdominal pain and there has been a marked increase overnight which would not be consistent with chronic disease. Acute viral hepatitis could cause such elevation but then would not cause the pain that she has been having. I told the patient that she may need an ERCP. I explained the use of contrast material the use of cautery to open up the ampulla and possibilities of bleeding or perforation or abscess causing pancreatitis, which could be severe. (3) Chronic kidney disease: Code(s): N18.9 - Chronic kidney disease, unspecified Status: Acute Assessment and Plan: Stage III according to the record. Subjective Date/time seen: 01/08/22 07:55 although she feels fine, her lipase has dropped dramatically. He had also bilirubin is increasing. Despite unremarkable MRCP, I suspect she has choledocholithiasis or at least biliary sludge. Review of Systems Review of Systems: All systems reviewed & are unremarkable except as noted in HPI and below Exam Const: General: alert Orientation/consciousness: patient oriented x3 Resp: Auscultation: clear to auscultation bilaterally Cardio: Rhythm: regular rhythm GI: Inspection: obesity GI Palp: Yes Soft to palpation, No Tenderness to palpation present (GI) and Yes No hepatosplenomegaly present Auscultation: normal bowel sounds Neuro: General: patient oriented x3 Objective Data Vital Signs Vital Signs: Vital Signs - 24 hr 01/07/22 08:00 01/07/22 14:00 01/07/22 22:00 Temperature 37.7 C H 37.3 C Pulse Rate 77 79 Respiratory Rate 20 14 Blood Pressure 105/51 L 117/58 L Pulse Oximetry 96 96 94 01/08/22 06:00 Temperature 36.8 C Pulse Rate 79 Respiratory Rate 16 Blood Pressure 123/50 L Pulse Oximetry 95 Intake/Output Intake/Output: Intake & Output 01/05/22 01/06/22 01/07/22 01/08/22 23:59 23:59 23:59 23:59 Intake Total 1750 50 Balance 1750 50 Meds/Results Medications: Active Medications Generic Name Dose Route Start Last Admin Trade Name Freq PRN Reason Stop Dose Admin Piperacillin/Tazobactam/Dextrose 3.375 gm in 50 mls @ 100 mls/hr 01/07/22 06:00 01/08/22 05:45 Zosyn 3.375 Gm/D5w 50ml Pm IVPB Infused Q6H ELROY Infusion Sodium Chloride 1,000 mls @ 150 mls/hr 01/07/22 09:15 01/07/22 23:29 Normal Saline Iv IV CONT 100 mls/hr .Q6H40M ELROY Administration Indomethacin 50 mg 01/08/22 07:53 Indomethacin 50 Mg Supp.Rect RECTAL 01/08/22 07:54 ONCE ONE Morphine Sulfate 2 mg 01/07/22 11:36 Morphine Sulfate (*Crx) 2 Mg/Ml Inj IV PUSH Q2H PRN Pain Rated 7-10 Ondansetron HCl 4 mg 01/07/22 00:30 Ondansetron Inj 4 Mg/2 Ml Vial IV PUSH Q4H PRN Nausea Radiology Results: ITS Impressions Abdomen/Pelvis CT 01/07/22 07:30 IMPRESSION: 1. Gallbladder distention, which may secondary to fasting or acute cholecystitis. Correlate with physical exam. 2. Mild intrahepatic and extrahepatic biliary duct dilatation. 3. Umbilical hernia containing fat. Abdomen Ultrasound 01/07/22 08:30 IMPRESSION: Severely thickened gallbladder wall, moderate distention. Differential diagnosis includes interstitial edema, chronic liver disease, acute or chronic cholecystitis. No sonographic Malone's sign was demon
--- NOTE | 2022-01-08 11:04 | PM.PNGS ---
Progress Note: A&P Assessment and Plan (1) Acute cholecystitis: Code(s): K81.0 - Acute cholecystitis Status: Acute Assessment and Plan: MRCP showed gallbladder wall thickening without obvious cholelithiasis or choledocholithiasis, but there were also findings of pancreatitis and peripancreatic edema. Lipase elevated today. Suspect acute interstitial pancreatitis, likely biliary. GI proceeding with ERCP today, will await results. Will plan interval cholecystectomy following ERCP depending on how she progresses, repeat labs tomorrow and trend lipase. (2) Transaminitis: Code(s): R74.01 - Elevation of levels of liver transaminase levels Status: Acute Assessment and Plan: AST and ALT down some today, but total bilirubin continues to rise up to 3.7 today. MRCP does not show any definitive choledocholithiasis or cholelithiasis, but with the trend of her labs this is still a concern despite MRCP findings. GI planning ERCP today. (3) Pancreatitis, acute: Code(s): K85.90 - Acute pancreatitis without necrosis or infection, unspecified Status: Acute Assessment and Plan: MRCP suggest findings of acute interstitial pancreatitis. Lipase this morning up to 3,411. Suspect this is biliary pancreatitis. Plan for ERCP today. Monitor labs, see plan above. (4) Hyponatremia: Code(s): E87.1 - Hypo-osmolality and hyponatremia Status: Acute Assessment and Plan: Improving, sodium 135, monitor labs. Additional Plan I have discussed the patient's case and plan of care with Dr. Sheppard. Subjective Subjective Date/Time Seen: 01/08/22 10:04 Patient reports: no new complaints and afebrile Interval history: Patient seen and examined. She reports feeling about the same as yesterday. She still reports some soreness in the epigastric area, but no significant abdominal pain. No nausea or vomiting. No other complaints. She is NPO and awaiting ERCP today. Review of Systems Review of Systems: All systems reviewed & are unremarkable except as noted in HPI and below Exam Const: General: no acute distress and awake Orientation/consciousness: patient oriented x3 GI: Inspection: non-distended GI Palp: Yes Soft to palpation, Yes Tenderness to palpation present (GI) (mild TTP across upper abdomen, worse in epigastric area), No Guarding due to palpation present (GI), Yes No hepatosplenomegaly present and No Rebound tenderness present Auscultation: normal bowel sounds Neuro: General: moves all extremities and no focal motor deficits Extrem: General: normal to inspection Psych: Insight: Good insight present (Psych) Judgement: Good judgement present (Psych) Objective Data Vital Signs Vital Signs: Vital Signs - 24 hr 01/07/22 14:00 01/07/22 22:00 01/08/22 06:00 Temperature 99.8 F H 99.2 F 98.2 F Pulse Rate 77 79 79 Respiratory Rate 20 14 16 Blood Pressure 105/51 L 117/58 L 123/50 L Pulse Oximetry 96 94 95 Intake/Output Intake/Output: Intake & Output 01/05/22 01/06/22 01/07/22 01/08/22 23:59 23:59 23:59 23:59 Intake Total 1750 50 Balance 1750 50 Meds/Results Medications: Active Medications Generic Name Dose Route Start Last Admin Trade Name Freq PRN Reason Stop Dose Admin Piperacillin/Tazobactam/Dextrose 3.375 gm in 50 mls @ 100 mls/hr 01/07/22 06:00 01/08/22 05:45 Zosyn 3.375 Gm/D5w 50ml Pm IVPB Infused Q6H ELROY Infusion Sodium Chloride 1,000 mls @ 150 mls/hr 01/07/22 09:15 01/08/22 08:00 Normal Saline Iv IV CONT 150 mls/hr .Q6H40M ELROY Infusion Morphine Sulfate 2 mg 01/07/22 11:36 Morphine Sulfate (*Crx) 2 Mg/Ml Inj IV PUSH Q2H PRN Pain Rated 7-10 Ondansetron HCl 4 mg 01/07/22 00:30 Ondansetron Inj 4 Mg/2 Ml Vial IV PUSH Q4H PRN Nausea Pantoprazole Sodium 40 mg 01/08/22 21:00 Pantoprazole Sodium Iv 40 Mg Vial IV PUSH Q12HR [facility] Radiology Results: ITS Impressions Abdomen/Pelvis CT 01/07
[2022-01-08] MEDS: SODIUM CHLORIDE 0.9% IV 1,000 ML 150 ML IV CONT (11:11)
[2022-01-08] MEDS: LACTATED RINGERS 1,000 ML 150 ML IV CONT (12:42)
--- NOTE | 2022-01-08 13:01 | WPDANESEPPF ---
Anes - Initial Pre Proc Eval Procedure: Operation Date: 01/08/22 13:00 Proposed Procedures p Endoscopic Retro Cholangiopancreatogram - Aguila Ashby MD Date/Time: 01/08/22 13:01 Surgeon: MARY Gallardo Pre Op Diagnosis: Cholecystitis Patient Data Age: 86 Gender: F Height: 1.57 m Weight: 72.5 kg Last Vital Signs Temp 98.1 F 01/08/22 12:35 Pulse 75 01/08/22 12:35 Resp 20 01/08/22 12:35 BP 135/58 L 01/08/22 12:35 Pulse Ox 96 01/08/22 12:35 Allergies Allergy/AdvReac Type Severity Reaction Status Date / Time No Known Allergies Allergy Unknown NONE Verified 01/08/22 12:34 Home Medications Medication Instructions Recorded Confirmed Type pravastatin 40 mg tablet 40 mg PO QPM #90 tablet 10/01/21 01/07/22 Rx alendronate 70 mg tablet 70 mg PO WEEKLY #12 tablet 10/22/21 01/07/22 Rx hydrochlorothiazide 12.5 mg capsule 12.5 mg PO DAILY #90 cap 11/01/21 01/07/22 Rx levothyroxine 75 mcg tablet 75 mcg PO DAILY #90 tablet 11/13/21 01/07/22 Rx famotidine 40 mg tablet 40 mg PO DAILY #90 tablet 12/31/21 01/07/22 Rx amlodipine 10 mg PO DAILY 01/07/22 01/07/22 History Laboratory Tests 01/08/22 01/08/22 06:01 06:01 WBC 12.1 K/mm3 H K/mm3 (4.5-10.0) RBC 3.26 M/mm3 L M/mm3 (4.2-5.4) Hgb 10.9 g/dL L g/dL (12.0-15.0) Hct 31.3 % L % (37.0-47.0) MCV 96.0 fl fl (80-100) MCH 33.4 pg pg (26-34) MCHC 34.8 g/dl g/dl (32-36) RDW 13.2 % % (11.5-14.5) Plt Count 207 k/mm3 k/mm3 (150-375) MPV 9.7 fl fl (7.4-10.4) Immature Gran % (Auto) 0.6 % H % (0-0.5) Neut % (Auto) 84.6 % H % (45.5-73.1) Lymph % (Auto) 8.4 % L % (18.3-44.2) [place] % (Auto) 5.4 % % (2.6-8.5) Eos % (Auto) 0.7 % % (0-4.4) Baso % (Auto) 0.3 % % (0.2-1.2) Lymph # (Auto) 1.02 K/mm3 K/mm3 (0.9-3.2) [place] # (Auto) 0.7 K/mm3 H K/mm3 (0.1-0.6) Eos # (Auto) 0.1 K/mm3 K/mm3 (0-0.3) Baso # (Auto) 0.0 K/mm3 K/mm3 (0.0-0.1) Abs Immat Gran (auto) 0.07 K/mm3 H K/mm3 (0.00-0.031) Absolute Neuts (auto) 10.3 K/mm3 H K/mm3 (1.3-6.7) Absolute Nucleated RBC 0.0 K/mm3 K/mm3 (0.0-0.012) Nucleated RBC % 0.0 % % (0.0-0.2) Sodium 135 mmol/L L mmol/L (137-145) Potassium 3.2 mmol/L L mmol/L (3.4-5.0) Chloride 105 mmol/L mmol/L (98-107) Carbon Dioxide 23 mmol/L mmol/L (22-30) Anion Gap 7 mmol/L L mmol/L (8-16) BUN 10 mg/dL mg/dL (7-17) Creatinine 1.00 mg/dL mg/dL (0.7-1.0) Estim Creat Clear Calc 34 ml/min ml/min Estimated GFR 53 L (59 - ) Glucose 90 mg/dL mg/dL (65-110) Calcium 8.1 mg/dL L mg/dL (8.4-10.2) Magnesium 2.0 mg/dL mg/dL (1.6-2.3) Total Bilirubin 3.7 mg/dL H mg/dL (0.2-1.3) AST 541 U/L H U/L (14-36) ALT 602 U/L H U/L (4-35) Alkaline Phosphatase 68 U/L U/L (38-126) Total Protein 6.0 g/dL L g/dL (6.3-8.2) Albumin 3.3 g/dL L g/dL (3.5-5.1) Lipase 3411 U/L H U/L (23-300) Patient hx anesthesia problems: none Family hx anesthesia problems: none Results Review: All pre-operative results and documents have been reviewed as part of the pre-operative evaluation. [facility] Past Medical History Medical History Acquired hypothyroidism CKD (chronic kidney disease), stage III Gastro-esophageal reflux disease without esophagitis Hy kid NOS w cr kid I-IV Hypertension Obesity Pure hypercholesterolemia Surgical History Surgical History History of tonsillectomy Family History Family History Sibling Patient's sister is in good health Patient's brother is in good health Hypertension Family history of diabetes mellitus in first
[2022-01-08] MEDS: INDOMETHACIN 50 MG SUPP.RECT RECTAL (13:33)
--- NOTE | 2022-01-08 14:08 | PM.IMPN ---
Progress Note: A&P Assessment and Plan (1) Acute cholecystitis: Code(s): K81.0 - Acute cholecystitis Status: Acute Assessment and Plan: - Consult Dr. Sheppard, General Surgery, appreciate recommendations. - CT and US evidence of concern for Acute Cholecystitis with non left shifted elevation to the WBC's. - NPO for possible surgery. - Treat pain and nausea. - Monitor VS and trend transaminases and WBC count. - Preserved Bilirubin at 1.1. - Continue Zosyn - 01/08/22: ERCP was performed today. Results as noted in today's Subjective complaint. Likely + Choledocholithiasis recently as the Lipase is now elevated and the pt. had physical characteristics of having recently passed a stone through the Ampula. (2) Hyponatremia: Code(s): E87.1 - Hypo-osmolality and hyponatremia Status: Resolved Assessment and Plan: - Secondary to volume deficit. - Sodium is 128. - No Neurological deficits, but will monitor. - IVF continued of NS at 100 ml/hr. - Monitor labs and vitals trends. - 01/08/22: Now resolved. (3) Hypertension: Qualifiers: Hypertension type: unspecified Qualified Code(s): I10 - Essential (primary) hypertension Code(s): I10 - Essential (primary) hypertension Status: Acute Assessment and Plan: - Adequate control at this time, running 130s/50s. - Continue to monitor and when no longer NPO, give pt. her home BP meds. (4) Hyperlipidemia: Qualifiers: Hyperlipidemia type: unspecified Qualified Code(s): E78.5 - Hyperlipidemia, unspecified Code(s): E78.5 - Hyperlipidemia, unspecified Status: Acute Assessment and Plan: - Holding secondary to current transaminitis and also secondary to NPO status for possible surgery. (5) Pancreatitis: Qualifiers: Chronicity: acute Pancreatitis type: biliary Acute pancreatitis complication: no infection or necrosis Qualified Code(s): K85.10 - Biliary acute pancreatitis without necrosis or infection Code(s): K85.90 - Acute pancreatitis without necrosis or infection, unspecified Status: Acute Assessment and Plan: - Lipase acutely increased today to 3411 from 133 yesterday. - Will trend LFT's and Lipase - ERCP today showed likely recent Choledocholithiasis. - Supportive care with IVF, Pain meds and anti-emetics. - GI and General surgery following and managing. Time Spent With Patient Time with patient: 15 - 25 minutes Subjective Date/time seen: 01/08/22 0930 This pt. was examined at the bedside in interval assessment for her admission of abdominal pain with possible Choledocholithiasis, Cholecystitis and transaminitis. Her Lipase increased acutely today to 3411 from 133 yesterday. She continues to have pain in the epigastric region. No further N/V. She underwent ERCP today and will have an interval Cholecystectomy following ERCP dependent upon the results. The ERCP showed an ampulla with a very papillary orifice, therefore suggesting the very recent passage of a stone. Opacification of the biliary system was successful and the CBD measured 9 mm in diameter. Sphincterotomy was performed and there was no immediate bleeding identified. Balloon sweeps were completed and there was no stone, debris or sludge found. Review of Systems Review of Systems: All systems reviewed & are unremarkable except as noted in HPI and below Exam Const: General: no acute distress and uncomfortable HENMT: Mouth: Yes moist mucous membranes Eyes: General: appearance normal, both eyes and all related structures Sclera: sclerae normal Pupils: Equal, round and reactive pupils present EOM: EOMs intact bilaterally Neck: Neck: supple and no JVD Lymphatic: lymphadenopathy not noted Resp: Effort & Inspection: normal respiratory effort Auscultation: clear to auscultation bilaterally Cardio: Rate: regular rate Rhythm: regular rhythm GI: GI Palp: Yes Tenderness to palpation present (GI) (Epigastric
[2022-01-08] MEDS: PANTOPRAZOLE SODIUM IV 40 MG VIAL IV PUSH ×2 (15:21→20:02)
[2022-01-08] MEDS: SODIUM CHLORIDE 0.9% IV 1,000 ML 100 ML IV CONT (20:02)
[2022-01-08] MEDS: BENZOCAINE/MENTHOL (*BKC) 18 EA LOZENGE 1 LOZENGE PO (22:50)
[2022-01-09] MEDS: BENZOCAINE/MENTHOL (*BKC) 18 EA LOZENGE 1 LOZENGE PO (01:23)
[2022-01-09] MEDS: MELATONIN 3 MG TABLET PO (01:23)
[2022-01-09] MEDS: SODIUM CHLORIDE 0.9% IV 1,000 ML 100 ML IV CONT ×2 (05:41→20:44)
[2022-01-09 06:00] VITALS: BP 116/67; PULSE 96; RESP 18; TEMP 36.8; O2SAT 97
[2022-01-09 06:30] LABS: Basophils Percent Auto 0.4 % (0.2-1.2); Eosinophils Absolute Auto 0.2 K/mm3 (0-0.3); Eosinophils Percent Auto 2.3 % (0-4.4); Hematocrit 31.4 % (37.0-47.0); Hemoglobin 10.7 g/dL (12.0-15.0); Immature Granulocyte Absolute 0.04 K/mm3 (0.00-0.031); Immature Granulocyte Percent A 0.5 % (0-0.5); Lymphocytes Absolute Auto 0.97 K/mm3 (0.9-3.2); Lymphocytes Percent Auto 11.9 % (18.3-44.2); Mean Corpuscular HGB Conc 34.1 g/dl (32-36); Mean Corpuscular Hemoglobin 32.9 pg (26-34); Mean Corpuscular Volume 96.6 fl (80-100); Mean Platelet Volume 9.6 fl (7.4-10.4); Monocytes Absolute Auto 0.6 K/mm3 (0.1-0.6); Monocytes Percent Auto 6.8 % (2.6-8.5); Neutrophils Absolute Auto 6.3 K/mm3 (1.3-6.7); Neutrophils Percent Auto 78.1 % (45.5-73.1); Platelet Count Result 207 k/mm3 (150-375); Red Blood Count 3.25 M/mm3 (4.2-5.4); White Blood Count 8.1 K/mm3 (4.5-10.0)
[2022-01-09 06:45] LABS: Alanine Aminotransferase 337 U/L (4-35); Albumin Level 3.3 g/dL (3.5-5.1); Alkaline Phosphatase 80 U/L (38-126); Anion Gap 5 mmol/L (8-16); Aspartate Amino Transferase 182 U/L (14-36); Bilirubin,Total 1.6 mg/dL (0.2-1.3); Blood Urea Nitrogen 7 mg/dL (7-17); Calcium 7.6 mg/dL (8.4-10.2); Carbon Dioxide 24 mmol/L (22-30); Chloride 109 mmol/L (98-107); Estimated CRCL calculation 48 ml/min; Estimated Glomerular Filt Rate > 60; Glucose 98 mg/dL (65-110); Lipase 1338 U/L (23-300); Sodium 138 mmol/L (137-145)
--- NOTE | 2022-01-09 06:58 | WPDGIPROGNO ---
Progress Note: A&P Assessment and Plan (1) Acute cholecystitis: Code(s): K81.0 - Acute cholecystitis Status: Acute Assessment and Plan: the jump in her transaminase levels suggest that she probably has choledocholithiasis. We are awaiting results of her MRCP. If negative then she will probably simply have a cholecystectomy .01/08 Although MRCP does not show it, I suspect she has choledocholithiasis given the fact she denies pancreatitis. 01/09 I will hold off on advancing her diet because she may be going to surgery. Her labs are all improved, including transaminases, bilirubin, and lipase (2) Transaminitis: Code(s): R74.01 - Elevation of levels of liver transaminase levels Status: Acute Assessment and Plan: I doubt that she has chronic liver disease because the elevation of enzymes associated with acute abdominal pain and there has been a marked increase overnight which would not be consistent with chronic disease. Acute viral hepatitis could cause such elevation but then would not cause the pain that she has been having. I told the patient that she may need an ERCP. I explained the use of contrast material the use of cautery to open up the ampulla and possibilities of bleeding or perforation or abscess causing pancreatitis, which could be severe. (3) Chronic kidney disease: Code(s): N18.9 - Chronic kidney disease, unspecified Status: Acute Assessment and Plan: Stage III according to the record. (4) Choledocholithiasis: Code(s): K80.50 - Calculus of bile duct without cholangitis or cholecystitis without obstruction Status: Acute Assessment and Plan: I told her that the ERCP found only some biliary sludge which was removed. Her labs are improving. She is ready for surgery. (5) Cough: Code(s): R05.9 - Cough, unspecified Status: Acute Assessment and Plan: She states that since yesterday evening she has had a cough if she coughs she her left side of her chest is sore. She also has somewhat of a sore throat probably due to intubation. Will obtain chest x-ray Subjective Date/time seen: 01/09/22 06:58 She denies any pain today. I discussed with her the results of her ERCP, that only tiny black sandlike particles were produced. We are awaiting this morning's blood test. Her only complaint is her chest feels congested. If she coughs the left side of her thorax is sore. Her throat is also a bit sore. Explain to her that that is likely due to the intubation, endotracheal tube and or endoscope, more likely the former. Review of Systems Review of Systems: All systems reviewed & are unremarkable except as noted in HPI and below Exam Const: General: alert Orientation/consciousness: patient oriented x3 Resp: Auscultation: clear to auscultation bilaterally Cardio: Rhythm: regular rhythm GI: Inspection: obesity Auscultation: normal bowel sounds Neuro: General: patient oriented x3 Objective Data Vital Signs Vital Signs: Vital Signs - 24 hr 01/08/22 12:35 01/08/22 13:54 01/08/22 14:04 Temperature 36.7 C 36.6 C Pulse Rate 75 60 71 Respiratory Rate 20 23 H 26 H Blood Pressure 135/58 L 89/48 L 128/67 Pulse Oximetry 96 97 99 01/08/22 14:14 01/08/22 14:24 01/08/22 14:34 Temperature Pulse Rate 71 70 71 Respiratory Rate 18 25 H 23 H Blood Pressure 141/67 H 121/64 130/64 Pulse Oximetry 95 98 97 01/08/22 14:44 01/08/22 15:00 01/08/22 21:55 Temperature 36.3 C L 37.0 C Pulse Rate 67 71 66 Respiratory Rate 24 H 19 16 Blood Pressure 129/61 142/80 H 130/62 Pulse Oximetry 98 95 96 Intake/Output Intake/Output: Intake & Output 01/06/22 01/07/22 01/08/22 01/09/22 23:59 23:59 23:59 23:59 Intake Total 1750 2600 1300 Balance 1750 2600 1300 Meds/Results Medications: Active Medications Generic Name Dose Route Start Last Admin Trade Name Freq PRN Reason Stop Dose Admin Benzocaine 1 lozenge
[2022-01-09] MEDS: PANTOPRAZOLE SODIUM IV 40 MG VIAL IV PUSH ×2 (09:45→20:44)
[2022-01-09] MEDS: POTASSIUM CHLORIDE INJ 40 MEQ in SODIUM CHLORIDE 0.9% IV 500 ML 130 MEQ IVPB (09:48)
--- NOTE | 2022-01-09 12:01 | PM.IMPN ---
Progress Note: A&P Assessment and Plan (1) Acute cholecystitis: Code(s): K81.0 - Acute cholecystitis Status: Acute Assessment and Plan: - Consult Dr. Sheppard, General Surgery, appreciate recommendations. - CT and US evidence of concern for Acute Cholecystitis with non left shifted elevation to the WBC's. - NPO for possible surgery. - Treat pain and nausea. - Monitor VS and trend transaminases and WBC count. - Preserved Bilirubin at 1.1. - Continue Zosyn - 01/08/22: ERCP was performed today. Results as noted in today's Subjective complaint. Likely + Choledocholithiasis recently as the Lipase is now elevated and the pt. had physical characteristics of having recently passed a stone through the Ampula. - 01/09/22: Pt. with interval improvement today of her pain. She did have some soreness in her chest of which GI ordered a CXR and there was noted atelectasis that pt. is not symptomatic of, and she will be having a Cholecystectomy tomorrow according to surgery. (2) Hyponatremia: Code(s): E87.1 - Hypo-osmolality and hyponatremia Status: Resolved Assessment and Plan: - Secondary to volume deficit. - Sodium is 128. - No Neurological deficits, but will monitor. - IVF continued of NS at 100 ml/hr. - Monitor labs and vitals trends. - 01/08/22: Now resolved. (3) Hypertension: Qualifiers: Hypertension type: unspecified Qualified Code(s): I10 - Essential (primary) hypertension Code(s): I10 - Essential (primary) hypertension Status: Acute Assessment and Plan: - Adequate control at this time, running 130s/50s. - Continue to monitor and when no longer NPO, give pt. her home BP meds. (4) Hyperlipidemia: Qualifiers: Hyperlipidemia type: unspecified Qualified Code(s): E78.5 - Hyperlipidemia, unspecified Code(s): E78.5 - Hyperlipidemia, unspecified Status: Acute Assessment and Plan: - Holding secondary to current transaminitis and also secondary to NPO status for possible surgery. (5) Pancreatitis: Qualifiers: Chronicity: acute Pancreatitis type: biliary Acute pancreatitis complication: no infection or necrosis Qualified Code(s): K85.10 - Biliary acute pancreatitis without necrosis or infection Code(s): K85.90 - Acute pancreatitis without necrosis or infection, unspecified Status: Acute Assessment and Plan: - Lipase acutely increased today to 3411 from 133 yesterday. - Will trend LFT's and Lipase - ERCP today showed likely recent Choledocholithiasis. - Supportive care with IVF, Pain meds and anti-emetics. - GI and General surgery following and managing. ERCP was performed yesterday and she has a cholecystectomy scheduled for tomorrow. The pt. has had interval improvement in her Lipase and LFT's. Time Spent With Patient Time with patient: 15 - 25 minutes Subjective Date/time seen: 01/09/22 0840 This pt. was examined at the bedside as she was admitted for treatment of her Choledocholithiasis and cholecystitis. She had ERCP yesterday and states her pain is much improved in addition to her lipase, AST, ALT, and T-bilirubin are better today. She reports that she is a little sore, but overall better than she has been. Surgery has seen her today and she will be having a Cholecystectomy tomorrow. In the meantime, will continue to monitor patient and her progress as well as treat her pain. Review of Systems Review of Systems: All systems reviewed & are unremarkable except as noted in HPI and below Exam Const: General: no acute distress and uncomfortable HENMT: Mouth: Yes moist mucous membranes Eyes: General: appearance normal, both eyes and all related structures Sclera: sclerae normal Pupils: Equal, round and reactive pupils present EOM: EOMs intact bilaterally Neck: Neck: supple and no JVD Lymphatic: lymphadenopathy not noted Resp: Effort & Inspection: normal respiratory effort Auscultation: clear to auscultati
--- NOTE | 2022-01-09 12:43 | P.PNAN_ITS ---
Anes - Prog Note Post-Op Date/Time: 01/09/22 08:43 Cardiovascular status: normal Respiratory status: normal Airway patency: baseline Mental status: baseline Post-Op hydration status: normal Vital Signs: Last Vital Signs Temp 98.3 F 01/09/22 06:00 Pulse 96 01/09/22 06:00 Resp 18 01/09/22 06:00 BP 116/67 01/09/22 06:00 Pulse Ox 97 01/09/22 06:00 Pain Score (VAS): 0 I/O: Intake & Output 01/08/22 01/09/22 01/09/22 23:59 07:59 15:59 Intake Total 1050 1300 Balance 1050 1300 Laboratory Tests 01/09/22 06:20 01/09/22 06:20 01/09/22 01/09/22 06:20 06:20 WBC 8.1 RBC 3.25 L Hgb 10.7 L Hct 31.4 L MCV 96.6 MCH 32.9 MCHC 34.1 RDW 13.0 Plt Count 207 MPV 9.6 Immature Gran % (Auto) 0.5 Neut % (Auto) 78.1 H Lymph % (Auto) 11.9 L [place] % (Auto) 6.8 Eos % (Auto) 2.3 Baso % (Auto) 0.4 Lymph # (Auto) 0.97 [place] # (Auto) 0.6 Eos # (Auto) 0.2 Baso # (Auto) 0.0 Abs Immat Gran (auto) 0.04 H Absolute Neuts (auto) 6.3 Absolute Nucleated RBC 0.0 Nucleated RBC % 0.0 Sodium 138 Potassium 3.0 L Chloride 109 H Carbon Dioxide 24 Anion Gap 5 L BUN 7 Creatinine 0.70 Estim Creat Clear Calc 48 Estimated GFR > 60 Glucose 98 Calcium 7.6 L Magnesium 2.0 Total Bilirubin 1.6 H AST 182 H ALT 337 H Alkaline Phosphatase 80 Total Protein 6.0 L Albumin 3.3 L Lipase 1338 H Post-procedural complaints: other (sore throat) Patient Feedback: Patient satisfied with anesthetic care.
[2022-01-09 14:00] VITALS: BP 134/63; PULSE 78; RESP 17; TEMP 36.5; O2SAT 100
--- NOTE | 2022-01-09 14:16 | PM.PNGS ---
Progress Note: A&P Assessment and Plan (1) Biliary acute pancreatitis: Code(s): K85.10 - Biliary acute pancreatitis without necrosis or infection Status: Acute Assessment and Plan: labs improving and exam benign, will recheck in am, will d/w pt timing of interval cholecystectomy, pt preference is to setup as outpt, will start low fat diet Subjective Subjective Date/Time Seen: 01/09/22 14:16 c/o lower chest and back pain, minimal abd pain, zane clears Review of Systems Review of Systems: All systems reviewed & are unremarkable except as noted in HPI and below Exam Const: General: cooperative, comfortable and no acute distress Orientation/consciousness: patient oriented x3 Resp: Auscultation: clear to auscultation bilaterally Cardio: Rate: regular rate Rhythm: regular rhythm GI: Inspection: normal to inspection and non-distended GI Palp: Yes Soft to palpation, No Tenderness to palpation present (GI), No Guarding due to palpation present (GI) and No Rigid due to palpation Objective Data Vital Signs Vital Signs: Vital Signs - 24 hr 01/08/22 14:24 01/08/22 14:34 01/08/22 14:44 Temperature Pulse Rate 70 71 67 Respiratory Rate 25 H 23 H 24 H Blood Pressure 121/64 130/64 129/61 Pulse Oximetry 98 97 98 01/08/22 15:00 01/08/22 21:55 01/09/22 06:00 Temperature 36.3 C L 37.0 C 36.8 C Pulse Rate 71 66 96 Respiratory Rate 19 16 18 Blood Pressure 142/80 H 130/62 116/67 Pulse Oximetry 95 96 97 Intake/Output Intake/Output: Intake & Output 01/06/22 01/07/22 01/08/22 01/09/22 23:59 23:59 23:59 23:59 Intake Total 1750 2600 1300 Balance 1750 2600 1300 Meds/Results Medications: Active Medications Generic Name Dose Route Start Last Admin Trade Name Freq PRN Reason Stop Dose Admin Benzocaine 1 lozenge 01/08/22 21:28 01/09/22 01:23 Benzocaine/Menthol (*Bkc) 18 Ea Lozenge PO 1 lozenge PRN PRN Administration Sore Throat Piperacillin/Tazobactam/Dextrose 3.375 gm in 50 mls @ 100 mls/hr 01/07/22 06:00 01/09/22 14:14 Zosyn 3.375 Gm/D5w 50ml Pm IVPB 100 mls/hr Q6H ELROY Administration Sodium Chloride 1,000 mls @ 100 mls/hr 01/07/22 09:15 01/09/22 06:04 Normal Saline Iv IV CONT Not Given .Q10H ELROY Melatonin 3 mg 01/09/22 00:51 01/09/22 01:23 Melatonin 3 Mg Tablet PO 3 mg HS PRN Administration Insomnia Morphine Sulfate 2 mg 01/07/22 11:36 Morphine Sulfate (*Crx) 2 Mg/Ml Inj IV PUSH Q2H PRN Pain Rated 7-10 Ondansetron HCl 4 mg 01/07/22 00:30 Ondansetron Inj 4 Mg/2 Ml Vial IV PUSH Q4H PRN Nausea Pantoprazole Sodium 40 mg 01/08/22 09:00 01/09/22 09:45 Pantoprazole Sodium Iv 40 Mg Vial IV PUSH 40 mg Q12HR ELROY Administration Radiology Results: ITS Impressions Abdomen/Pelvis CT 01/07/22 07:30 IMPRESSION: 1. Gallbladder distention, which may secondary to fasting or acute cholecystitis. Correlate with physical exam. 2. Mild intrahepatic and extrahepatic biliary duct dilatation. 3. Umbilical hernia containing fat. Abdomen Ultrasound 01/07/22 08:30 IMPRESSION: Severely thickened gallbladder wall, moderate distention. Differential diagnosis includes interstitial edema, chronic liver disease, acute or chronic cholecystitis. No sonographic Malone's sign was demonstrated. Clinical correlation, consider HIDA scan. MRCP 01/07/22 15:39 IMPRESSION: 1. Nonspecific prominent edematous-appearing gallbladder wall thickening without evident cholelithiasis. Differential would include acute acalculus cholecystitis, reactive edema related to interstitial pancreatitis or edema related to heart failure, liver failure, renal failure, sepsis or other generalized edema forming states. 2. Nonspecific peripancreatic and pancreatic interstitial edema which could be due to acute interstitial pancreatitis or other nonspecific edema related to the same etiology as the gallbladder wall thickening. Endo Retro
[2022-01-09 21:39] VITALS: BP 132/62; PULSE 76; RESP 18; TEMP 37; O2SAT 97
[2022-01-10 05:43] VITALS: BP 122/59; PULSE 72; RESP 18; TEMP 36.9; O2SAT 95
[2022-01-10 06:19] LABS: Basophils Absolute Auto 0.1 K/mm3 (0.0-0.1); Basophils Percent Auto 0.7 % (0.2-1.2); Eosinophils Absolute Auto 0.3 K/mm3 (0-0.3); Hematocrit 33.3 % (37.0-47.0); Hemoglobin 11.6 g/dL (12.0-15.0); Immature Granulocyte Absolute 0.03 K/mm3 (0.00-0.031); Immature Granulocyte Percent A 0.4 % (0-0.5); Lymphocytes Absolute Auto 1.23 K/mm3 (0.9-3.2); Lymphocytes Percent Auto 17.7 % (18.3-44.2); Mean Corpuscular HGB Conc 34.8 g/dl (32-36); Mean Corpuscular Hemoglobin 32.7 pg (26-34); Mean Corpuscular Volume 93.8 fl (80-100); Mean Platelet Volume 9.9 fl (7.4-10.4); Monocytes Absolute Auto 0.6 K/mm3 (0.1-0.6); Monocytes Percent Auto 9.2 % (2.6-8.5); Neutrophils Absolute Auto 4.7 K/mm3 (1.3-6.7); Platelet Count Result 243 k/mm3 (150-375); Red Blood Count 3.55 M/mm3 (4.2-5.4); Red Cell Distribution Width 12.9 % (11.5-14.5)
[2022-01-10 06:33] LABS: Alanine Aminotransferase 234 U/L (4-35); Albumin Level 3.5 g/dL (3.5-5.1); Alkaline Phosphatase 76 U/L (38-126); Anion Gap 7 mmol/L (8-16); Aspartate Amino Transferase 74 U/L (14-36); Bilirubin,Total 0.9 mg/dL (0.2-1.3); Blood Urea Nitrogen 7 mg/dL (7-17); Calcium 7.9 mg/dL (8.4-10.2); Carbon Dioxide 21 mmol/L (22-30); Chloride 110 mmol/L (98-107); Estimated CRCL calculation 42 ml/min; Estimated Glomerular Filt Rate > 60; Glucose 93 mg/dL (65-110); Lipase 665 U/L (23-300); Magnesium 1.8 mg/dL (1.6-2.3); Sodium 138 mmol/L (137-145)
--- NOTE | 2022-01-10 07:07 | WPDGIPROGNO ---
Progress Note: A&P Assessment and Plan (1) Acute cholecystitis: Code(s): K81.0 - Acute cholecystitis Status: Acute Assessment and Plan: the jump in her transaminase levels suggest that she probably has choledocholithiasis. We are awaiting results of her MRCP. If negative then she will probably simply have a cholecystectomy .01/08 Although MRCP does not show it, I suspect she has choledocholithiasis given the fact she denies pancreatitis. 01/09 I will hold off on advancing her diet because she may be going to surgery. Her labs are all improved, including transaminases, bilirubin, and lipase 01/10 she is going to have cholecystectomy tomorrow as an outpatient. I agree with discharging her today. (2) Transaminitis: Code(s): R74.01 - Elevation of levels of liver transaminase levels Status: Acute Assessment and Plan: I doubt that she has chronic liver disease because the elevation of enzymes associated with acute abdominal pain and there has been a marked increase overnight which would not be consistent with chronic disease. Acute viral hepatitis could cause such elevation but then would not cause the pain that she has been having. I told the patient that she may need an ERCP. I explained the use of contrast material the use of cautery to open up the ampulla and possibilities of bleeding or perforation or abscess causing pancreatitis, which could be severe. 01/10 Although her ERCP did not reveal stones. There was biliary sludge, sandlike particles which were removed (3) Chronic kidney disease: Code(s): N18.9 - Chronic kidney disease, unspecified Status: Acute Assessment and Plan: Stage III according to the record. (4) Choledocholithiasis: Code(s): K80.50 - Calculus of bile duct without cholangitis or cholecystitis without obstruction Status: Acute Assessment and Plan: I told her that the ERCP found only some biliary sludge which was removed. Her labs are improving. She is ready for surgery. (5) Cough: Code(s): R05.9 - Cough, unspecified Status: Acute Assessment and Plan: She states that since yesterday evening she has had a cough if she coughs she her left side of her chest is sore. She also has somewhat of a sore throat probably due to intubation. Will obtain chest x-ray 01/10 chest x-ray negative for pneumonia. And she states that she is no longer coughing. The sore throat she had after her procedure has essentially resolved Subjective Date/time seen: 01/10/22 07:07 she states that each day her abdominal discomfort improves. She tolerated dinner last night. She is hopeful of going home today and coming in for laparoscopic cholecystectomy tomorrow. From my perspective I told her that that would be fine with me. Review of Systems Review of Systems: All systems reviewed & are unremarkable except as noted in HPI and below Exam Const: General: alert Orientation/consciousness: patient oriented x3 Resp: Auscultation: clear to auscultation bilaterally Cardio: Rhythm: regular rhythm GI: GI Palp: Yes Tenderness to palpation present (GI) ( Epigastric area but less so each day) Auscultation: normal bowel sounds Neuro: General: patient oriented x3 Objective Data Vital Signs Vital Signs: Vital Signs - 24 hr 01/09/22 14:00 01/09/22 21:39 01/10/22 05:43 Temperature 36.5 C 37.0 C 36.9 C Pulse Rate 78 76 72 Respiratory Rate 17 18 18 Blood Pressure 134/63 132/62 122/59 L Pulse Oximetry 100 97 95 Intake/Output Intake/Output: Intake & Output 01/07/22 01/08/22 01/09/22 01/10/22 23:59 23:59 23:59 23:59 Intake Total 1750 2600 3060 300 Balance 1750 2600 3060 300 Meds/Results Medications: Active Medications Generic Name Dose Route Start Last Admin Trade Name Freq PRN Reason Stop Dose Admin Benzocaine 1 lozenge 01/08/22 21:28 01/09/22 01:23 Benzocaine/Menthol (*Bkc) 18 Ea Lozenge PO 1 lozenge P
[2022-01-10] MEDS: SODIUM CHLORIDE 0.9% IV 1,000 ML 100 ML IV CONT ×2 (09:25→20:22)
[2022-01-10] MEDS: PANTOPRAZOLE SODIUM IV 40 MG VIAL IV PUSH ×2 (09:26→20:22)
[2022-01-10] MEDS: POTASSIUM CHLORIDE 20 MEQ TABLET PO (09:26)
[2022-01-10] MEDS: POTASSIUM CHLORIDE 20 MEQ TABLET 40 MEQ PO (09:26)
--- NOTE | 2022-01-10 11:14 | PM.PNGS ---
Progress Note: A&P Assessment and Plan (1) Biliary acute pancreatitis: Code(s): K85.10 - Biliary acute pancreatitis without necrosis or infection Status: Acute Assessment and Plan: Clinically improving. WBC normal. LFTs trending down. Scheduled her cholecystectomy tomorrow morning. Patient agreeable to staying for the surgery prior to discharge. Continue IV antibiotics. Okay to have low fat diet today and make NPO after midnight. Additional Plan I have discussed the patient's case and plan of care with Dr. Sheppard. Subjective Subjective Date/Time Seen: 01/10/22 11:14 Patient reports: no new complaints, pain is less and afebrile Interval history: Patient seen and examined. No new complaints. She reports still having some soreness in the epigastric area but overall keeps feeling better. No nausea or other complaints at this time. Review of Systems Review of Systems: All systems reviewed & are unremarkable except as noted in HPI and below Exam Const: General: no acute distress and awake Orientation/consciousness: patient oriented x3 Resp: Effort & Inspection: no respiratory distress Auscultation: clear to auscultation bilaterally Cardio: Rate: regular rate Rhythm: regular rhythm GI: Inspection: non-distended GI Palp: Yes Soft to palpation, Yes Tenderness to palpation present (GI) (mild TTP in epigastric and RUQ), No Guarding due to palpation present (GI) and No Rebound tenderness present Auscultation: normal bowel sounds Neuro: General: moves all extremities and no focal motor deficits Extrem: General: normal to inspection Psych: Insight: Good insight present (Psych) Objective Data Vital Signs Vital Signs: Vital Signs - 24 hr 01/09/22 14:00 01/09/22 21:39 01/10/22 05:43 Temperature 97.7 F 98.6 F 98.4 F Pulse Rate 78 76 72 Respiratory Rate 17 18 18 Blood Pressure 134/63 132/62 122/59 L Pulse Oximetry 100 97 95 Intake/Output Intake/Output: Intake & Output 01/07/22 01/08/22 01/09/22 01/10/22 23:59 23:59 23:59 23:59 Intake Total 1750 2600 3060 1300 Balance 1750 2600 3060 1300 Meds/Results Medications: Active Medications Generic Name Dose Route Start Last Admin Trade Name Freq PRN Reason Stop Dose Admin Benzocaine 1 lozenge 01/08/22 21:28 01/09/22 01:23 Benzocaine/Menthol (*Bkc) 18 Ea Lozenge PO 1 lozenge PRN PRN Administration Sore Throat Piperacillin/Tazobactam/Dextrose 3.375 gm in 50 mls @ 100 mls/hr 01/07/22 06:00 01/10/22 06:03 Zosyn 3.375 Gm/D5w 50ml Pm IVPB 100 mls/hr Q6H ELROY Administration Sodium Chloride 1,000 mls @ 100 mls/hr 01/07/22 09:15 01/10/22 09:25 Normal Saline Iv IV CONT 100 mls/hr .Q10H ELROY Administration Melatonin 3 mg 01/09/22 00:51 01/09/22 01:23 Melatonin 3 Mg Tablet PO 3 mg HS PRN Administration Insomnia Morphine Sulfate 2 mg 01/07/22 11:36 Morphine Sulfate (*Crx) 2 Mg/Ml Inj IV PUSH Q2H PRN Pain Rated 7-10 Ondansetron HCl 4 mg 01/07/22 00:30 Ondansetron Inj 4 Mg/2 Ml Vial IV PUSH Q4H PRN Nausea Pantoprazole Sodium 40 mg 01/08/22 09:00 01/10/22 09:26 Pantoprazole Sodium Iv 40 Mg Vial IV PUSH 40 mg Q12HR ELROY Administration Radiology Results: ITS Impressions Abdomen/Pelvis CT 01/07/22 07:30 IMPRESSION: 1. Gallbladder distention, which may secondary to fasting or acute cholecystitis. Correlate with physical exam. 2. Mild intrahepatic and extrahepatic biliary duct dilatation. 3. Umbilical hernia containing fat. Abdomen Ultrasound 01/07/22 08:30 IMPRESSION: Severely thickened gallbladder wall, moderate distention. Differential diagnosis includes interstitial edema, chronic liver disease, acute or chronic cholecystitis. No sonographic Malone's sign was demonstrated. Clinical correlation, consider HIDA scan. MRCP 01/07/22 15:39 IMPRESSION: 1. Nonspecific prominent edematous-appearing gallbladder wall thickening without evident c
--- NOTE | 2022-01-10 13:07 | PM.IMPN ---
Progress Note: A&P Assessment and Plan (1) Acute cholecystitis: Code(s): K81.0 - Acute cholecystitis Status: Acute Assessment and Plan: - Consult Dr. Sheppard, General Surgery, appreciate recommendations. - CT and US evidence of concern for Acute Cholecystitis with non left shifted elevation to the WBC's. - NPO for possible surgery. - Treat pain and nausea. - Monitor VS and trend transaminases and WBC count. - Preserved Bilirubin at 1.1. - Continue Zosyn - 01/08/22: ERCP was performed today. Results as noted in today's Subjective complaint. Likely + Choledocholithiasis recently as the Lipase is now elevated and the pt. had physical characteristics of having recently passed a stone through the Ampula. - 01/09/22: Pt. with interval improvement today of her pain. She did have some soreness in her chest of which GI ordered a CXR and there was noted atelectasis that pt. is not symptomatic of, and she will be having a Cholecystectomy tomorrow according to surgery. - 01/10/22: Pt. with interval improvement of LFT's, Lipase and Bilirubin. (2) Hyponatremia: Code(s): E87.1 - Hypo-osmolality and hyponatremia Status: Resolved Assessment and Plan: - Secondary to volume deficit. - Sodium is 128. - No Neurological deficits, but will monitor. - IVF continued of NS at 100 ml/hr. - Monitor labs and vitals trends. - 01/08/22: Now resolved. (3) Hypertension: Qualifiers: Hypertension type: unspecified Qualified Code(s): I10 - Essential (primary) hypertension Code(s): I10 - Essential (primary) hypertension Status: Acute Assessment and Plan: - Adequate control at this time, running 130s/50s. - NPO after midnight for OR. (4) Hyperlipidemia: Qualifiers: Hyperlipidemia type: unspecified Qualified Code(s): E78.5 - Hyperlipidemia, unspecified Code(s): E78.5 - Hyperlipidemia, unspecified Status: Acute Assessment and Plan: - Was held due to liver enzyme elevation. - Will resume tomorrow. (5) Pancreatitis: Qualifiers: Acute pancreatitis complication: no infection or necrosis Chronicity: acute Pancreatitis type: biliary Qualified Code(s): K85.10 - Biliary acute pancreatitis without necrosis or infection Code(s): K85.90 - Acute pancreatitis without necrosis or infection, unspecified Status: Acute Assessment and Plan: - Lipase acutely increased today to 3411 from 133 yesterday. - Will trend LFT's and Lipase - ERCP today showed likely recent Choledocholithiasis. - Supportive care with IVF, Pain meds and anti-emetics. - GI and General surgery following and managing. ERCP was performed yesterday and she has a cholecystectomy scheduled for tomorrow. The pt. has had interval improvement in her Lipase and LFT's. - 01/10/2022: Pt. will have cholecystectomy tomorrow. Subjective Date/time seen: 01/10/22 1030 This pt. was examined at the bedside in interval assessment. She reports interval improvement in pain, and Cholecystectomy is planned for tomorrow after discussing with surgery. Her Bilirubin today has decreased to normal, and her Transaminases are improving. Her Lipase has returned to normal. She denies any acute N/V/D/CP/Dyspnea and is tolerating a solid diet, but does still have some acute pain in the RUQ and epigastric region today, therefore, the plan of Cholecystectomy will proceed tomorrow as previously planned. Review of Systems Review of Systems: All systems reviewed & are unremarkable except as noted in HPI and below Exam Const: General: no acute distress and uncomfortable HENMT: Mouth: Yes moist mucous membranes Eyes: General: appearance normal, both eyes and all related structures Sclera: sclerae normal Pupils: Equal, round and reactive pupils present EOM: EOMs intact bilaterally Neck: Neck: supple and no JVD Lymphatic: lymphadenopathy not noted Resp: Effort & Inspection: normal respiratory effort A
[2022-01-10 14:00] VITALS: BP 137/59; PULSE 73; RESP 20; TEMP 36.1; O2SAT 99
[2022-01-10 21:40] VITALS: BP 152/81; PULSE 78; RESP 18; TEMP 37.3; O2SAT 98
[2022-01-11] VITALS (10 sets, daily range): BP systolic 92–141; BP diastolic 45–74; PULSE 57–78; RESP 16–20; TEMP 36.1–37.3; O2SAT 92–100
[2022-01-11] MEDS: CHLORHEXIDINE GLUCONATE 4% SOL 120 ML BTL 1 APPLIC TOPICAL (05:41)
[2022-01-11 05:56] LABS: Basophils Absolute Auto 0.1 K/mm3 (0.0-0.1); Basophils Percent Auto 0.7 % (0.2-1.2); Eosinophils Absolute Auto 0.3 K/mm3 (0-0.3); Eosinophils Percent Auto 4.2 % (0-4.4); Hematocrit 33.2 % (37.0-47.0); Hemoglobin 11.7 g/dL (12.0-15.0); Immature Granulocyte Absolute 0.03 K/mm3 (0.00-0.031); Immature Granulocyte Percent A 0.4 % (0-0.5); Lymphocytes Absolute Auto 1.49 K/mm3 (0.9-3.2); Lymphocytes Percent Auto 21.5 % (18.3-44.2); Mean Corpuscular HGB Conc 35.2 g/dl (32-36); Mean Corpuscular Hemoglobin 32.9 pg (26-34); Mean Corpuscular Volume 93.3 fl (80-100); Monocytes Absolute Auto 0.9 K/mm3 (0.1-0.6); Neutrophils Absolute Auto 4.2 K/mm3 (1.3-6.7); Neutrophils Percent Auto 60.2 % (45.5-73.1); Platelet Count Result 267 k/mm3 (150-375); Red Blood Count 3.56 M/mm3 (4.2-5.4); Red Cell Distribution Width 12.8 % (11.5-14.5); White Blood Count 6.9 K/mm3 (4.5-10.0)
[2022-01-11 06:11] LABS: Alanine Aminotransferase 166 U/L (4-35); Albumin Level 3.7 g/dL (3.5-5.1); Alkaline Phosphatase 69 U/L (38-126); Anion Gap 5 mmol/L (8-16); Aspartate Amino Transferase 44 U/L (14-36); Bilirubin,Total 0.9 mg/dL (0.2-1.3); Blood Urea Nitrogen 6 mg/dL (7-17); Calcium 8.8 mg/dL (8.4-10.2); Carbon Dioxide 23 mmol/L (22-30); Chloride 109 mmol/L (98-107); Estimated CRCL calculation 48 ml/min; Estimated Glomerular Filt Rate > 60; Glucose 99 mg/dL (65-110); Magnesium 1.8 mg/dL (1.6-2.3); Potassium 3.4 mmol/L (3.4-5.0); Sodium 137 mmol/L (137-145)
[2022-01-11] MEDS: LACTATED RINGERS 1,000 ML 30 ML IV CONT ×2 (06:25→08:40)
--- NOTE | 2022-01-11 06:27 | WPDANESEPPF ---
Anes - Initial Pre Proc Eval Procedure: Operation Date: 01/08/22 13:00 Proposed Procedures p Endoscopic Retro Cholangiopancreatogram - Aguila Ashby MD Operation Date: 01/11/22 07:30 Proposed Procedures p Laparoscopic Cholecystectomy - Che Sheppard MD Date/Time: 01/11/22 06:27 Surgeon: MARY Gallardo Pre Op Diagnosis: Cholecystitis Patient Data Age: 86 Gender: F Height: 1.57 m Weight: 72.5 kg Last Vital Signs Temp 36.6 C 01/11/22 05:49 Pulse 72 01/11/22 05:49 Resp 18 01/11/22 05:49 BP 127/60 01/11/22 05:49 Pulse Ox 98 01/11/22 05:49 Allergies Allergy/AdvReac Type Severity Reaction Status Date / Time No Known Allergies Allergy Unknown NONE Verified 01/08/22 12:34 Home Medications Medication Instructions Recorded Confirmed Type pravastatin 40 mg tablet 40 mg PO QPM #90 tablet 10/01/21 01/07/22 Rx alendronate 70 mg tablet 70 mg PO WEEKLY #12 tablet 10/22/21 01/07/22 Rx hydrochlorothiazide 12.5 mg capsule 12.5 mg PO DAILY #90 cap 11/01/21 01/07/22 Rx levothyroxine 75 mcg tablet 75 mcg PO DAILY #90 tablet 11/13/21 01/07/22 Rx famotidine 40 mg tablet 40 mg PO DAILY #90 tablet 12/31/21 01/07/22 Rx amlodipine 10 mg PO DAILY 01/07/22 01/07/22 History Laboratory Tests 01/10/22 01/10/22 01/11/22 05:40 05:40 05:44 WBC 7.0 K/mm3 K/mm3 6.9 K/mm3 K/mm3 (4.5-10.0) (4.5-10.0) RBC 3.55 M/mm3 L M/mm3 3.56 M/mm3 L M/mm3 (4.2-5.4) (4.2-5.4) Hgb 11.6 g/dL L g/dL 11.7 g/dL L g/dL (12.0-15.0) (12.0-15.0) Hct 33.3 % L % 33.2 % L % (37.0-47.0) (37.0-47.0) MCV 93.8 fl fl 93.3 fl fl (80-100) (80-100) MCH 32.7 pg pg 32.9 pg pg (26-34) (26-34) MCHC 34.8 g/dl g/dl 35.2 g/dl g/dl (32-36) (32-36) RDW 12.9 % % 12.8 % % (11.5-14.5) (11.5-14.5) Plt Count 243 k/mm3 k/mm3 267 k/mm3 k/mm3 (150-375) (150-375) MPV 9.9 fl fl 9.0 fl fl (7.4-10.4) (7.4-10.4) Immature Gran % (Auto) 0.4 % % 0.4 % % (0-0.5) (0-0.5) Neut % (Auto) 68.0 % % 60.2 % % (45.5-73.1) (45.5-73.1) Lymph % (Auto) 17.7 % L % 21.5 % % (18.3-44.2) (18.3-44.2) Laporte % (Auto) 9.2 % H % 13.0 % H % (2.6-8.5) (2.6-8.5) Eos % (Auto) 4.0 % % 4.2 % % (0-4.4) (0-4.4) Baso % (Auto) 0.7 % % 0.7 % % (0.2-1.2) (0.2-1.2) Lymph # (Auto) 1.23 K/mm3 K/mm3 1.49 K/mm3 K/mm3 (0.9-3.2) (0.9-3.2) Laporte # (Auto) 0.6 K/mm3 K/mm3 0.9 K/mm3 H K/mm3 (0.1-0.6) (0.1-0.6) Eos # (Auto) 0.3 K/mm3 K/mm3 0.3 K/mm3 K/mm3 (0-0.3) (0-0.3) Baso # (Auto) 0.1 K/mm3 K/mm3 0.1 K/mm3 K/mm3 (0.0-0.1) (0.0-0.1) Abs Immat Gran (auto) 0.03 K/mm3 K/mm3 0.03 K/mm3 K/mm3 (0.00-0.031) (0.00-0.031) Absolute Neuts (auto) 4.7 K/mm3 K/mm3 4.2 K/mm3 K/mm3 (1.3-6.7) (1.3-6.7) Absolute Nucleated RBC 0.0 K/mm3 K/mm3 0.0 K/mm3 K/mm3 (0.0-0.012) (0.0-0.012) Nucleated RBC % 0.0 % % 0.0 % % (0.0-0.2) (0.0-0.2) Sodium 138 mmol/L mmol/L (137-145) Potassium 3.0 mmol/L L mmol/L (3.4-5.0) Chloride 110 mmol/L H mmol/L (98-107) Carbon Dioxide 21 mmol/L L mmol/L (22-30) Anion Gap 7 mmol/L L mmol/L (8-16) BUN 7 mg/dL mg/dL (7-17) Creatinine 0.80 mg/dL mg/dL (0.7-1.0) Estim Creat Clear Calc 42 ml/min ml/min Estimated GFR > 60 (59 - ) Glucose 93 mg/dL mg/dL (65-110) Calcium 7.9 mg/dL L mg/dL (8.4-10.2) Magnesium 1.8 mg/dL mg/dL (1.6-2.3) Total Bilirubin 0.9 mg/dL mg/dL (0.2-1.3) AST 74 U/L H U/L (14-36) ALT 234 U/L H U/L (4-35) Alkaline Phosphatase 76 U/L U/L (38-126) Total Protein 6.0 g/dL L g/dL (6.3-8.2) Albumin 3.5 g/dL g/dL (3.5-5.1) Lipase 665 U/L H U/L (23-300) 01/11/22 05:44 WBC RBC Hgb
--- NOTE | 2022-01-11 07:19 | WPDHPUPDATE1 ---
History and Physical Update Update Date/Time: 01/11/22 07:19 History and Physical has been reviewed, including an updated exam of the patient. There are NO changes in the patient's condition. Risks, benefits, and alternatives have been discussed and questions answered. Patient agrees to proceed with procedure.
--- NOTE | 2022-01-11 08:20 | P.OP_ITS ---
Procedure Note - Detailed Date of Procedure 01/11/22 Pre-op Diagnosis acute biliary pancreatitis Post-op Diagnosis Same Procedure Performed Laparoscopic cholecystectomy Surgeon Che Sheppard MD Anesthesia General Indications 86-year-old female status post ERCP sphincterotomy and stent for biliary pancreatitis now set up for interval cholecystectomy Findings moderately inflamed and distended gallbladder Description of Procedure The patient was taken to the operating room placed in the supine position. After adequate induction of general anesthesia, the patient was prepped and draped in normal sterile fashion. A time-out was then performed to verify the patient's identity as well as the procedure being performed. I then made a 5 mm incision in the infraumbilical region. Through this, a Veress needle was placed into the peritoneal cavity and CO2 gas was then insufflated. After adequate pneumoperitoneum was achieved, the Veress needle was removed and a 5 mm optiview trocar was placed through this incision under direct visualization. I then placed the laparoscope through this trocar site and under direct visualization placed a further 12 mm subxiphoid port as well as 2 additional 5 mm ports in the right upper abdomen. The gallbladder was then identified and was noted to be moderately inflamed and distended. I was able to place a grasper at the dome of the gallbladder and this was retracted anterior and cephalad up over the liver. A 2nd retractor was then placed at the infundibulum and retracted laterally, this allowed visualization of the triangle of Calot. I then was able to visualize the cystic duct in its entirety from its proximal insertion into the gallbladder, to its distal junction with the common hepatic/common bile duct junction. At this point, I carefully skeletonized the proximal cystic duct with the [place] dissector. I then clipped and transected the proximal cystic duct. Next I visualized the cystic artery. Again the artery was skeletonized, clipped, and transected. I then used the Bovie cautery to take down the peritoneal attachments of the gallbladder off the liver bed. Once the gallbladder specimen was completely detached, an endo-pouch was placed through the 12 mm port site. I then placed the gallbladder specimen into the Endo pouch and removed the endo-pouch from the 12 mm port site. The specimen will now be sent to pathology for further review. I then copiously irrigated the right upper quadrant. Hemostasis was noted in the liver bed, the clips were noted to be in good position on both the cystic duct stump and the cystic artery stump. No other pathology was noted in the right upper quadrant. I then moved the laparoscope to the subxiphoid port. No iatrogenic injury or other pathology was noted in the lower abdomen. I then closed the 12 mm trocar site under direct visualization using the Robinson cone and 0 Vicryl suture. At this point, the abdomen was desufflated and all ports removed. All port sites were then clos ed with 4.O Monocryl subcuticular sutures. Dermabond was placed on each incision. The patient tolerated the procedure well, was extubated in the operating room postoperative and will be transferred to the recovery room in stable condition Estimated Blood Loss 5 Drains No Packing No Pathology Yes Complications No immediate complications Condition Stable Disposition PACU
--- NOTE | 2022-01-11 08:24 | SUR.PHASEI ---
Two port sites were stuck to the gown when patient got to recovery. New skin glue was applied.
--- NOTE | 2022-01-11 08:42 | SUR.PHASEI ---
Simple mask removed at 0842.
[2022-01-11] MEDS: PANTOPRAZOLE SODIUM IV 40 MG VIAL IV PUSH (10:19)
[2022-01-11] MEDS: ALENDRONATE SODIUM 70 MG TABLET PO (10:20)
[2022-01-11] MEDS: hydroCHLOROthiazide 12.5 MG CAPSULE PO (10:20)
[2022-01-11] MEDS: amLODIPine BESYLATE 5 MG TABLET 10 MG PO (10:20)
[2022-01-11] MEDS: FAMOTIDINE 20 MG TABLET 40 MG PO (10:20)
[2022-01-11] MEDS: LEVOTHYROXINE SODIUM 75 MCG TABLET PO (10:20)
[2022-01-11] MEDS: SODIUM CHLORIDE 0.9% IV 1,000 ML 100 ML IV CONT (10:22)
--- NOTE | 2022-01-11 15:59 | PM.DS ---
DS: Admitting Diagnosis Discharge Date 01/15/2020 Admitting Diagnosis ABDOMINAL PAIN DS: Discharge Diagnosis Discharge Diagnosis (1) Acute cholecystitis: Code(s): K81.0 - Acute cholecystitis Status: Acute Assessment and Plan: - Consult Dr. Sheppard, General Surgery, appreciate recommendations. - CT and US evidence of concern for Acute Cholecystitis with non left shifted elevation to the WBC's.. - Continue Zosyn - 01/08/22: ERCP was performed today. Results as noted in today's Subjective complaint. Likely + Choledocholithiasis recently as the Lipase is now elevated and the pt. had physical characteristics of having recently passed a stone through the Ampula. - 01/09/22: Pt. with interval improvement today of her pain. She did have some soreness in her chest of which GI ordered a CXR and there was noted atelectasis that pt. is not symptomatic of, and she will be having a Cholecystectomy tomorrow according to surgery. - 01/10/22: Pt. with interval improvement of LFT's, Lipase and Bilirubin. -01/11 sp cholecystectyomy (2) Hyponatremia: Code(s): E87.1 - Hypo-osmolality and hyponatremia Status: Resolved Assessment and Plan: - IVF continued of NS at 100 ml/hr. - 01/08/22: Now resolved. (3) Hypertension: Qualifiers: Hypertension type: unspecified Qualified Code(s): I10 - Essential (primary) hypertension Code(s): I10 - Essential (primary) hypertension Status: Acute Assessment and Plan: - Adequate control at this time, running 130s/50s. (4) Hyperlipidemia: Qualifiers: Hyperlipidemia type: unspecified Qualified Code(s): E78.5 - Hyperlipidemia, unspecified Code(s): E78.5 - Hyperlipidemia, unspecified Status: Acute Assessment and Plan: - Was held due to liver enzyme elevation. - Will resume tomorrow. (5) Pancreatitis: Qualifiers: Acute pancreatitis complication: no infection or necrosis Chronicity: acute Pancreatitis type: biliary Qualified Code(s): K85.10 - Biliary acute pancreatitis without necrosis or infection Code(s): K85.90 - Acute pancreatitis without necrosis or infection, unspecified Status: Acute Assessment and Plan: - Lipase acutely increased today to 3411 from 133 yesterday. - Will trend LFT's and Lipase - ERCP today showed likely recent Choledocholithiasis. - Supportive care with IVF, Pain meds and anti-emetics. - GI and General surgery following and managing. ERCP was performed yesterday and she has a cholecystectomy scheduled for tomorrow. The pt. has had interval improvement in her Lipase and LFT's. - 01/11/2022:sp cholecystectomy DS: Summary Hospital Course Hospital Course: This very pleasant 86 year old female patient with significant PMH of Osteoporosis, HTN, GERD, hypothyroidism and HLD, presented to the ER last evening with complaints of having acute abdominal pain. She endorses that she ate Vegetable soup at 1700 last evening then began having acute pain in the epigastric and RUQ regions around 1900 with associated N/V. She denies any fevers, sick contacts, diarrhea or any other complaints such as CP. She came to the ER where workup showed a normal EKG, negative troponin's, a mildly elevated WBC count of 11.6, elevated transaminases with AST at 226 and ALT at 83, negative urine, and normal Lipase at 133. She is also hyponatremic at 128. CT of abdomen and pelvis showed gall bladder distention with thickening in a focal location in the front. The CBD and intrahepatic ducts are prominent and measure up to [address] Sheppard was consulted for General Surgery and he ordered an US of the RUQ that showed a severely thickened gallbladder wall, moderate distention present. Sp cholecystectomy stable for Dc. Time Spent with Patient Time attestation: Total time spent providing and/or coordinating discharge services: 45 minutes on day of discharge Exam HENMT: Mouth: Yes moist mucous
== END 2022-01-11 18:15 | disposition home or self-care (01) | DRG 417 ==
LOC: ANHED 01-07 00:53 → ANH3MEDSUR 01-07 00:54
PROVIDERS: Internal Medicine Gastroenterology; Nurse Practitioner Adult Health; Nurse Practitioner Family; Physician Assistant; Surgery; Admitting Provider Internal Medicine; Emergency Provider Emergency Medicine; PCP Family Medicine; Visit Provider Family Medicine
PROC: 0F798ZZ Dilation of Common Bile Duct, Via Natural or Artificial Opening Endoscopic (ICD-10-PCS; CPT 43260; principal; 2022-01-08 13:00)
PROC: 0FT44ZZ Resection of Gallbladder, Percutaneous Endoscopic Approach (ICD-10-PCS; CPT 47562; principal; 2022-01-11 07:30)
DX: K81.0 Acute cholecystitis (principal); K85.10 Biliary acute pancreatitis without necrosis or infection; E87.1 Hypo-osmolality and hyponatremia; N18.30 Chronic kidney disease, stage 3 unspecified; I12.9 Hypertensive chronic kidney disease with stage 1 through stage 4 chronic kidney disease, or unspecified chronic kidney disease; E66.9 Obesity, unspecified; E78.00 Pure hypercholesterolemia, unspecified; E03.9 Hypothyroidism, unspecified; K21.9 Gastro-esophageal reflux disease without esophagitis; R05.9 Cough, unspecified; Z83.3 Family history of diabetes mellitus; Z80.8 Family history of malignant neoplasm of other organs or systems; Z79.899 Other long term (current) drug therapy
CPT/HCPCS: 36415; 71046; 74177; 74183; 74329; 76376; 76705; 80053; 81003; 83605; 83690; 83735; 84484; 85025; 85610; 85730; 88304; 93005; 96361; 96365; 96366; 96375; 99285; A9270; A9577; C9113; G0378; J0330; J1100; J1170; J2001; J2270; J2405; J2543; J2704; J2710; J3010; J3480; J7030; J7040; J7120; Q9967

== ENCOUNTER 2022-04-18 10:14 | Outpatient (CLI) | payer OTHER, SELFPAY ==
--- NOTE | 2022-04-18 11:00 | NEURO_ITS ---
Impression: # Complains of numbness of hands. # Bilateral sensory Carpal Tunnel Syndrome. # No ulnar neuropathy. # Normal needle/EMG exam. # Clinical correlation recommended. Nerve Conduction Studies Anti Sensory Summary Table Stim Site NR Peak (ms) P-T Amp (?V) Site1 Site2 Delta-P (ms) Dist (cm) Kirit (m/s) Left Median Anti Sensory (2-3nd Digit) Wrist 4.2 41.1 Wrist 2-3nd Digit 4.2 14.0 33 Wrist 4.9 32.3 Wrist 2-3nd Digit 4.2 14.0 33 Right Median Anti Sensory (2-3nd Digit) Wrist 4.6 53.1 Wrist 2-3nd Digit 4.6 14.0 30 Wrist 3.3 10.2 Wrist 2-3nd Digit 4.6 14.0 30 Left Radial Anti Sensory (Base 1st Digit) Wrist 2.0 15.5 Wrist Base 1st Digit 2.0 0.0 Right Radial Anti Sensory (Base 1st Digit) Wrist 2.8 15.7 Wrist Base 1st Digit 2.8 0.0 Left Ulnar Anti Sensory (5th Digit) Wrist 3.1 75.8 Wrist 5th Digit 3.1 14.0 45 Right Ulnar Anti Sensory (5th Digit) Wrist 3.1 55.6 Wrist 5th Digit 3.1 14.0 45 Motor Summary Table Stim Site NR Onset (ms) O-P Amp (mV) Site1 Site2 Delta-0 (ms) Dist (cm) Kirit (m/s) Left Median Motor (Abd Poll Brev) Wrist 3.1 1.6 Elbow Wrist 4.7 27.0 57 Elbow 7.8 0.9 Right Median Motor (Abd Poll Brev) Wrist 3.2 5.0 Elbow Wrist 4.5 26.0 58 Elbow 7.7 4.0 Left Ulnar Motor (Abd Dig Minimi) Wrist 2.3 5.2 A Elbow Wrist 4.6 26.0 57 A Elbow 6.9 4.2 Right Ulnar Motor (Abd Dig Minimi) Wrist 2.7 6.6 A Elbow Wrist 4.8 28.0 58 A Elbow 7.5 6.1 F Wave Studies NR F-Lat (ms) L-R F-Lat (ms) Left Median (Mrkrs) (Abd Poll Brev) 28.63 1.78 Right Median (Mrkrs) (Abd Poll Brev) 26.85 1.78 Left Ulnar (Mrkrs) (Abd Dig Min) 27.39 1.14 Right Ulnar (Mrkrs) (Abd Dig Min) 26.25 1.14 EMG Side Muscle Nerve Root Ins Act Fibs Amp Dur Recrt Comment Right 1stDorInt Ulnar C8-T1 Nml Nml Nml Nml Nml Right Ext Indicis Radial (Post Int) C7-8 Nml Nml Nml Nml Nml Right Ext Digitorum Radial (Post Int) C7-8 Nml Nml Nml Nml Nml Right BrachioRad Radial C5-6 Nml Nml Nml Nml Nml Right PronatorTeres Median C6-7 Nml Nml Nml Nml Nml Right Abd Poll Brev Median C8-T1 Nml Nml Nml Nml Nml Left 1stDorInt Ulnar C8-T1 Nml Nml Nml Nml Nml Left Ext Indicis Radial (Post Int) C7-8 Nml Nml Nml Nml Nml Left Ext Digitorum Radial (Post Int) C7-8 Nml Nml Nml Nml Nml Left BrachioRad Radial C5-6 Nml Nml Nml Nml Nml Left PronatorTeres Median C6-7 Nml Nml Nml Nml Nml Left Abd Poll Brev Median C8-T1 Nml Nml Nml Nml Nml MTDD
== END 2022-04-18 10:15 | disposition home or self-care (01) ==
PROVIDERS: PCP Family Medicine; Visit Provider Family Medicine
DX: G56.03 Carpal tunnel syndrome, bilateral upper limbs (principal)
CPT/HCPCS: 95886; 95911

== ENCOUNTER → 2022-05-17 01:37 | Outpatient (CLI) | payer OTHER, SELFPAY ==
[2022-05-17 11:12] LABS: SARS-CoV-2 RNA PCR Positive
== END ==
PROVIDERS: PCP Family Medicine; Visit Provider Physician Assistant
DX: U07.1 COVID-19 (principal)
CPT/HCPCS: C9803; U0003; U0005

== ENCOUNTER 2022-06-24 12:58 | Outpatient (CLI) | payer OTHER, SELFPAY ==
[2022-06-24 13:36] LABS: Anion Gap 10 mmol/L (8-16); Blood Urea Nitrogen 10 mg/dL (7-17); Calcium 9.5 mg/dL (8.4-10.2); Carbon Dioxide 25 mmol/L (22-30); Chloride 96 mmol/L (98-107); Estimated Glomerular Filt Rate 60; Glucose 102 mg/dL (65-110); Potassium 3.7 mmol/L (3.4-5.0); Sodium 131 mmol/L (137-145)
== END 2022-06-24 12:59 | disposition home or self-care (01) ==
LOC: ANHSURGERY 13:10
PROVIDERS: Anesthesiology; PCP Family Medicine; Visit Provider Plastic Surgery
DX: Z79.899 Other long term (current) drug therapy (principal); Z01.818 Encounter for other preprocedural examination
CPT/HCPCS: 36415; 80048

== ENCOUNTER 2022-06-27 01:45 | Day surgery (SDC) | payer OTHER, SELFPAY ==
[2022-06-21 12:09] VITALS: BMI 28.4
--- NOTE | 2022-06-21 12:17 | PC.NURSE ---
Report to the Outpatient Waiting Room, entrance under the green pavilion located off [facility], at time _0630_ on date _[id number]_. OR Time: _0830_. Time changes happen often and if your time is changed the preop area will call you the afternoon before. - You and your visitor will be asked to self-screen and do not enter if you have any COVID symptoms. - Only one visitor and NO children visitors are allowed at this time. - The patient visitor is requested to leave or wait in car when not with patient due to restrictions. - A mask is required within the hospital. Patients may have clear liquids (water, carbonated beverages, clear teas, apple juice) until 3 hours prior to surgery with a maximum of 20 ounces. - No food from midnight until time of surgery Take the following medications with a SIP of water the morning of surgery: __Levothyroxine and amlodipine Medications to discontinue per physician ____Multivitamin, Dix 3, and Calcium Date to take last [id number] Please no make-up, nail tanzanian, hairspray, perfume, deodorant, or body powder the day of surgery. No jewelry (including any body piercings) or valuables the day of surgery, leave them at home. Please take a shower or bath the night before, or the morning of, surgery with an antibacterial soap. Wear comfortable, loose fitting clothing. - Jewelry must be removed prior to entering the operating room. Rings and piercings that are not removed may be cut off. - The hospital will not accept responsibility for valuables. - Please leave all valuables, including medications, at home the day of surgery. If you are going home after surgery, a licensed star route mail driver must drive you home. - NO public transportation without another adult. - We recommend that an adult stay with you for 24 hours following discharge. - We also recommend that you do not drive, make important decision, drink alcoholic beverages, or take any drugs that were not prescribed by your health care provider for at least 24 hours after your discharge time. Follow any additional instructions given to you from your surgeon. If you or anyone in your household have experienced Covid symptoms in the past week, please notify your surgeon or the nurse liaison at the phone number below for possible testing. Telephone instructions given to __Patient___and asked if any additional questions and then verbalized understanding. Patient advised to call surgeon office or pre surgery nurse liaison [phone] if any additional questions.
--- NOTE | 2022-06-26 18:30 | WPDANESEPPF ---
Anes - Initial Pre Proc Eval Procedure: Operation Date: 06/27/22 08:30 Proposed Procedures p Right Open Carpal Tunnel Release - Augustin Sanders MD Date/Time: 06/26/22 18:30 Surgeon: Augustin Sanders MD Pre Op Diagnosis: right carpal tunnel syndrome Patient Data Age: 86 Gender: F Height: 1.55 m Weight: 68.2 kg Allergies Allergy/AdvReac Type Severity Reaction Status Date / Time No Known Allergies Allergy Unknown NONE Verified 06/21/22 12:06 Home Medications Medication Instructions Recorded Confirmed Type levothyroxine 75 mcg tablet 75 mcg PO DAILY #90 tabs 11/13/21 06/21/22 Rx famotidine 40 mg tablet 40 mg PO DAILY #90 tabs 12/31/21 06/21/22 Rx amlodipine 10 mg tablet 10 mg PO DAILY 01/07/22 06/21/22 History pravastatin 40 mg tablet 40 mg PO QPM #90 tabs 04/02/22 06/21/22 Rx hydrochlorothiazide 12.5 mg capsule 12.5 mg PO DAILY #90 caps 04/29/22 06/21/22 Rx calcium 600 mg capsule 1,200 mg PO DAILY 06/21/22 06/21/22 History multivitamin 1 tablet PO DAILY 06/21/22 06/21/22 History omega-3 fatty acids 1,000 mg PO DAILY 06/21/22 06/21/22 History Patient hx anesthesia problems: none Family hx anesthesia problems: none Results Review: All pre-operative results and documents have been reviewed as part of the pre-operative evaluation. [facility] Past Medical History Medical History Acquired hypothyroidism CKD (chronic kidney disease), stage III Gastro-esophageal reflux disease without esophagitis Hy kid NOS w cr kid I-IV Hypertension Obesity Pure hypercholesterolemia Surgical History Surgical History History of tonsillectomy Hx laparoscopic cholecystectomy 01/11/22 Family History Family History Sibling Patient's sister is in good health Patient's brother is in good health Hypertension Family history of diabetes mellitus in first degree relative Family history of primary malignant neoplasm of liver Father Family history of malignant neoplasm Mother Family history of malignant neoplasm Social History Social History Smoking status: Never smoker Second hand tobacco smoke exposure: No Alcohol intake: never Drinks per week: 1 Substance use: never Substance use type: does not use Living arrangements: with family Gender identity (if verbalized by the patient): Female Sexual Orientation (if Verbalized by the Patient): Straight or Heterosexual Spiritual care concerns: No Anes - Eval Final PreProcedure Day of Procedure 06/26/22 18:30 Patient weight: overweight Heart: regular rate and rhythm Lungs: clear to auscultation Airway: Mallampati scale class II Neurological: alert and oriented Last oral intake: >/= 8 hours ASA classification: III Emergent: no Anesthetic plan: proceed Anesthesia type and monitoring: general GIVS and standard monitoring Results Review: All pre-operative results and documents have been reviewed as part of the pre-operative evaluation. Informed Consent: The patient's anesthetic plan and its attendant risks and benefits were discussed with the patient/family/POA. Questions were solicited and answers provided to the satisfaction of the patient/family/POA.
--- NOTE | 2022-06-27 07:11 | WPDHPUPDATE1 ---
History and Physical Update Update Date/Time: 06/27/22 07:11 History and Physical has been reviewed, including an updated exam of the patient. There are NO changes in the patient's condition. Risks, benefits, and alternatives have been discussed and questions answered. Patient agrees to proceed with procedure.
[2022-06-27] MEDS: LACTATED RINGERS 1,000 ML 30 ML IV CONT (07:58)
[2022-06-27 08:12] LABS: Sodium 133 mmol/L (137-145)
[2022-06-27 08:14] VITALS: BP 136/63; PULSE 73; RESP 18; TEMP 36.2; O2SAT 100
[2022-06-27] MEDS: LIDO 1%/EPINEPHRINE 1:100,000 50 ML VIAL INFILTRATE (08:28)
[2022-06-27] MEDS: BACITRACIN OINTMENT 15 GM TUBE 1 APPLIC TOPICAL (08:44)
[2022-06-27 08:48] VITALS: BP 109/50; PULSE 67; RESP 20; O2SAT 98
--- NOTE | 2022-06-27 09:02 | W.PM.PROC2 ---
Procedure Note - Detailed Date of Procedure 06/27/22 Pre-op Diagnosis right carpal tunnel syndrome Post-op Diagnosis Same Procedure Performed Right open carpal tunnel release Surgeon Augustin Sanders MD Anesthesia MAC Description of Procedure The right carpal canal was marked on the patient's wrist in the holding area. She was taken to the operating room where she was placed supine on the operating table. She was given IV sedation. The extremity was prepped and draped in usual fashion. The time-out was held and confirmed. The site was remarked for the incision. This area was infiltrated with 1% lidocaine with epinephrine. A tourniquet was not utilized. Some time was allowed for hemostatic effect. The incision was made as marked on the patient's palm and dissection was carried bluntly through the subcutaneous tissue to the palmar aponeurosis. This was divided largely blade blunt and dissection and scissor dissection. The transverse retinaculum was identified however overlying that was a persistent median artery least 2 mm in diameter this was easily dissected for mobilization and was held out of the way we employed a vein retractor for that. The retinaculum was incised then with a 15 blade and under 3 point retraction the retinaculum was divided distally and proximally to completely release it. There was no significant bleeding from the artery that time. The skin was closed with interrupted 5 0 nylon suture. The usual bandage was applied and the patient was discharged from the operating room stable condition. She is being discharged home with a prescription for tramadol 8. Estimated Blood Loss 3 Tourniquet Time 0 Drains No Packing No Pathology None sent Complications No immediate complications Condition Stable Disposition Same day
[2022-06-27 09:15] VITALS: BP 102/64; PULSE 61; RESP 20
[2022-06-27 09:45] VITALS: BP 102/64; PULSE 61; RESP 20
== END 2022-06-27 09:55 | disposition home or self-care (01) ==
PROVIDERS: PCP Family Medicine; Visit Provider Plastic Surgery
PROC: (CPT 64721; principal; 2022-06-27 08:30)
DX: G56.01 Carpal tunnel syndrome, right upper limb (principal); I12.9 Hypertensive chronic kidney disease with stage 1 through stage 4 chronic kidney disease, or unspecified chronic kidney disease; N18.30 Chronic kidney disease, stage 3 unspecified; E78.00 Pure hypercholesterolemia, unspecified; E03.9 Hypothyroidism, unspecified; K21.9 Gastro-esophageal reflux disease without esophagitis
CPT/HCPCS: 64721; 36415; 80048; 84295; A9270; J2704; J7120

== ENCOUNTER 2022-07-11 14:35 | Outpatient (CLI) | payer OTHER, SELFPAY ==
--- NOTE | ~2022-07-11 | MM_ITS ---
EXAMINATION: MM screening [facility] w ronaldo HISTORY: Screening mammogram TECHNIQUE: Craniocaudal and mediolateral oblique 3-D tomosynthesis images were obtained and synthetic 2-D images were generated. CAD analysis was submitted and interpreted. COMPARISON: 06/05/2021, 06/01/2020, 05/11/2019 BREAST PARENCHYMAL COMPOSITION: There are scattered areas of fibroglandular density. FINDINGS: No suspicious mass, calcification, or architectural distortion are identified in either julia ast to suggest malignancy. There has been no suspicious interval change. IMPRESSION: 1. No mammographic evidence of malignancy. 2. Recommend routine screening mammography while the patient remains in good health. BI-RADS Category 1: Negative Reviewed, dictated and finalized at location B. IMPRESSION: 1. No mammographic evidence of malignancy. 2. Recommend routine screening mammography while the patient remains in good he alth. BI-RADS Category 1: Negative
== END 2022-07-11 14:36 | disposition home or self-care (01) ==
PROVIDERS: PCP Family Medicine; Visit Provider Family Medicine
DX: Z12.31 Encounter for screening mammogram for malignant neoplasm of breast (principal)
CPT/HCPCS: 77063; 77067

== ENCOUNTER 2022-08-07 02:24 | Day surgery (SDC) | payer OTHER, SELFPAY ==
[2022-08-01 11:12] VITALS: BMI 28.4
--- NOTE | 2022-08-01 11:16 | PC.NURSE ---
Report to the Outpatient Waiting Room, entrance under the green pavilion located off [facility], at time __0600 on date __08/07/22 . Planned Procedure Time: ___729 . Time changes happen often and if your time is changed the preop area will call you the afternoon before. - You and your visitor will be asked to self-screen and do not enter if you have any COVID symptoms. - We encourage only one visitor and NO visitors under age 16 are allowed at this time. Your visitor will receive communication by the phone number that is given day of service. - The patient visitor is requested to social distance or may leave the building when not with patient due to restrictions. - A mask is required within the hospital. Patients may have clear liquids (water, carbonated beverages, clear teas, apple juice) until 3 hours prior to surgery (0430 AM) with a maximum of 20 ounces. - No food from midnight until time of surgery - Infants may have breast milk until 4 hours before surgery, infant formula 6 hours prior to surgery. - Children will be allowed to drink immediately following surgery. If applicable, please bring a bottle or sippy cup to assist with drinking. Juice, water, soda, and popsicles are readily available. For infants on formula, please bring formula the day of surgery. Pacifiers are allowed. Take the following medications with a SIP of water the morning of surgery: _AMLODIPINE, LEVOTHYROXINE_ Medications to discontinue per physician _MULTIVITAMIN, FISH OIL, CALCIUM 3 DAYS PRIOR TO SURGERY___ Date to take last dose___08/03/22 Please no make-up, nail niuean, hairspray, perfume, deodorant, or body powder the day of surgery. No jewelry (including any body piercings) or valuables the day of surgery, leave them at home. Please take a shower or bath the night before, or the morning of, surgery with an antibacterial soap. Wear comfortable, loose fitting clothing. Children are encouraged to wear pajamas. - Jewelry must be removed prior to entering the operating room. Rings and piercings that are not removed may be cut off. - The hospital will not accept responsibility for valuables. - Please leave all valuables, including medications, at home the day of surgery. If you are going home after surgery, a licensed hammer driver must drive you home. - NO public transportation without another adult. - We recommend that an adult stay with you for 24 hours following discharge. - We also recommend that you do not drive, make important decision, drink alcoholic beverages, or take any drugs that were not prescribed by your health care provider for at least 24 hours after your discharge time. For Pediatric surgeries, we recommend two adults accompany the child home. Follow any additional instructions given to you from your surgeon. If you or anyone in your household have experienced Covid symptoms in the past week, please notify your surgeon or the nurse liaison at the phone number below for possible testing. Telephone instructions given to ____PT and asked if any additional questions and then verbalized understanding. Patient advised to call surgeon office or pre surgery nurse liaison [phone] if any additional questions.
--- NOTE | 2022-08-06 14:45 | WPDANESEPPF ---
Anes - Initial Pre Proc Eval Procedure: Operation Date: 08/07/22 07:30 Proposed Procedures p Left Open Carpal Tunnel Release - Augustin Sanders MD Date/Time: 08/06/22 14:45 Surgeon: Augustin Sanders MD Pre Op Diagnosis: left carpal tunnel syndrome Patient Data Age: 86 Gender: F Height: 1.55 m Weight: 68.2 kg Allergies Allergy/AdvReac Type Severity Reaction Status Date / Time No Known Allergies Allergy Unknown NONE Verified 08/07/22 06:18 Home Medications Medication Instructions Recorded Confirmed Type pravastatin 40 mg tablet 40 mg PO QPM #90 tabs 04/02/22 08/07/22 Rx calcium 600 mg capsule 1,200 mg PO DAILY 06/21/22 08/07/22 History multivitamin 1 tablet PO DAILY 06/21/22 08/07/22 History omega-3 fatty acids 1,000 mg PO DAILY 06/21/22 08/07/22 History amlodipine 10 mg tablet 10 mg PO DAILY #90 tabs 07/01/22 08/07/22 Rx famotidine 40 mg tablet 40 mg PO DAILY #90 tabs 07/15/22 08/07/22 Rx hydrochlorothiazide 12.5 mg capsule 12.5 mg PO DAILY #90 caps 07/22/22 08/07/22 Rx levothyroxine 75 mcg tablet 75 mcg PO DAILY #90 tabs 08/05/22 08/07/22 Rx Patient hx anesthesia problems: none Family hx anesthesia problems: none Results Review: All pre-operative results and documents have been reviewed as part of the pre-operative evaluation. [facility] Past Medical History Medical History (Updated 07/03/22 @ 13:07 by Bryn Nicolas MD) Acquired hypothyroidism CKD (chronic kidney disease), stage III Gastro-esophageal reflux disease without esophagitis Hy kid NOS w cr kid I-IV Hypertension Obesity Pure hypercholesterolemia Surgical History Surgical History History of tonsillectomy Hx laparoscopic cholecystectomy 01/11/22 Family History Family History Sibling Patient's sister is in good health Patient's brother is in good health Hypertension Family history of diabetes mellitus in first degree relative Family history of primary malignant neoplasm of liver Father Family history of malignant neoplasm Mother Family history of malignant neoplasm Social History Social History Smoking status: Never smoker Second hand tobacco smoke exposure: No Alcohol intake: never Drinks per week: 1 Substance use: never Substance use type: does not use Living arrangements: with family Additional living arrangements comments: LIVES WITH [facility] [employer] Gender identity (if verbalized by the patient): Female Sexual Orientation (if Verbalized by the Patient): Straight or Heterosexual Spiritual care concerns: No Anes - Eval Final PreProcedure Day of Procedure 08/06/22 14:45 Patient weight: normal Heart: regular rate and rhythm Lungs: clear to auscultation Neurological: alert and oriented Last oral intake: >/= 8 hours ASA classification: II Emergent: no Anesthetic plan: proceed Anesthesia type and monitoring: general GIVS and standard monitoring Results Review: All pre-operative results and documents have been reviewed as part of the pre-operative evaluation. Informed Consent: The patient's anesthetic plan and its attendant risks and benefits were discussed with the patient/family/POA. Questions were solicited and answers provided to the satisfaction of the patient/family/POA.
[2022-08-07 06:32] VITALS: BP 137/60; PULSE 67; RESP 16; TEMP 36.6; O2SAT 100
[2022-08-07] MEDS: LACTATED RINGERS 1,000 ML 30 ML IV CONT (07:02)
--- NOTE | 2022-08-07 07:13 | WPDHPUPDATE1 ---
History and Physical Update Update Date/Time: 08/07/22 07:13 History and Physical has been reviewed, including an updated exam of the patient. There are NO changes in the patient's condition. Risks, benefits, and alternatives have been discussed and questions answered. Patient agrees to proceed with procedure.
[2022-08-07 07:47] VITALS: BP 100/50; PULSE 62; RESP 14; O2SAT 100
--- NOTE | 2022-08-07 08:09 | W.PM.PROC2 ---
Procedure Note - Detailed Date of Procedure 08/07/22 Pre-op Diagnosis left carpal tunnel syndrome Post-op Diagnosis Same Procedure Performed Left open carpal tunnel release Surgeon Augustin Sanders MD Anesthesia MAC Description of Procedure The left carpal tunnel was marked on patient waiting holding area. She was taken to the operating room she was placed supine table. Extremity was prepped and draped in usual fashion and she was given sedation. Time-out was held and confirmed. The site was marked for the incision. The extremity was exsanguinated and tourniquet inflated 250 mmHg. The incision was made as marked. Dissection through the subcutaneous tissue was done with blunt dissection. Palmar fascia and the retinaculum were identified incised. Under 3 point retraction the retinaculum was divided distally and proximally to completely release it. There was no unusual anatomy noted. The skin was closed with interrupted 5 0 nylon suture small bandage applied. The tourniquet was released. The patient was discharged from the operating room stable condition. Prescription for hydrocodone 5/325 5. Was sent to her pharmacy. Estimated Blood Loss 0 Tourniquet Time 6 Drains No Packing No Pathology None sent Complications No immediate complications Condition Stable Disposition Same day
[2022-08-07 08:15] VITALS: BP 100/50; PULSE 62; RESP 20
[2022-08-07 08:45] VITALS: BP 128/86; PULSE 75; RESP 20
[2022-08-07 08:55] VITALS: BP 128/89; PULSE 69; RESP 20
== END 2022-08-07 09:00 | disposition home or self-care (01) ==
PROVIDERS: PCP Family Medicine; Visit Provider Plastic Surgery
PROC: (CPT 64721; principal; 2022-08-07 07:30)
DX: G56.02 Carpal tunnel syndrome, left upper limb (principal); I12.9 Hypertensive chronic kidney disease with stage 1 through stage 4 chronic kidney disease, or unspecified chronic kidney disease; N18.30 Chronic kidney disease, stage 3 unspecified; E03.9 Hypothyroidism, unspecified; E78.00 Pure hypercholesterolemia, unspecified; K21.9 Gastro-esophageal reflux disease without esophagitis
CPT/HCPCS: 64721; A9270; J2405; J2704; J3010; J7120

== ENCOUNTER 2023-03-19 15:10 | Outpatient (CLI) | payer OTHER, SELFPAY ==
[2023-03-20 10:33] LABS: Alanine Aminotransferase 15 U/L (6-35); Albumin Level 4.6 g/dL (3.5-5.1); Alkaline Phosphatase 47 U/L (38-126); Anion Gap 7 mmol/L (8-16); Aspartate Amino Transferase 28 U/L (14-36); Bilirubin,Total 0.5 mg/dL (0.2-1.3); Blood Urea Nitrogen 12 mg/dL (7-17); Calcium 9.8 mg/dL (8.4-10.2); Carbon Dioxide 30 mmol/L (22-30); Chloride 97 mmol/L (98-107); Cholesterol 178 mg/dL (0-200); Estimated Glomerular Filt Rate 60; Glucose 99 mg/dL (65-110); HDL Direct 84 mg/dL; LDL Cholesterol Direct 66 mg/dL; Potassium 3.7 mmol/L (3.4-5.0); Sodium 134 mmol/L (137-145); Triglycerides 112 mg/dL (<150)
== END 2023-03-19 15:11 | disposition home or self-care (01) ==
PROVIDERS: PCP Family Medicine; Visit Provider Physician Assistant
DX: I12.9 Hypertensive chronic kidney disease with stage 1 through stage 4 chronic kidney disease, or unspecified chronic kidney disease (principal); E03.9 Hypothyroidism, unspecified; E78.5 Hyperlipidemia, unspecified; N18.9 Chronic kidney disease, unspecified
CPT/HCPCS: 36415; 80053; 80061; 84443

== ENCOUNTER 2023-08-15 10:59 | Emergency (ER) | payer OTHER, SELFPAY ==
--- NOTE | ~2023-08-15 | XR_ITS ---
EXAMINATION: XR knee RT min 4V DATE: 08/15/2023 11:36 INDICATION: Lateral right knee pain TECHNIQUE: Weight bearing anteroposterior and Fowler, sunrise, and flexed lateral views of the rig ht knee were obtained COMPARISON: None. FINDINGS: Alignment is normal. No fracture. Minimal subtle chondrocalcinosis at the medial and lateral compart ments. There is mild joint space narrowing in the lateral compartment, moderate joint space narrowing at the patellofemoral compartment. Small knee joint effusion without layering lipohemarthrosis. Soft tissues are unremarkable. IMPRESSION: 1. 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 Reviewed, dictated and finalized at location A. TMENT COMMUNITY MANAGER IMPRESSION: 1. Moderate patellofemoral and mild lateral compartment osteoarthritis with sma ll joint effusion.
[2023-08-15 11:15] VITALS: BP 150/65; PULSE 88; RESP 16; TEMP 36.4; O2SAT 100
--- NOTE | 2023-08-15 11:16 | ED.EXTPRO ---
HPI - Extremity Problem General Chief complaint: Extremity Problem,Nontraumatic Stated complaint: rt knee pain Time Seen by Provider: 08/15/23 11:16 Source: patient, RN notes reviewed and old records reviewed Mode of arrival: ambulatory Limitations: no limitations History of Present Illness HPI Narrative: 87 yo Patient presents to the [facility] with complaints of right lateral knee pain for 3 weeks denies any injury. No redness, swelling noted tenderness to the lateral eye SPECT Onset (ago): week(s) (3) Related Data Home Medications Medication Instructions Recorded Confirmed calcium 600 mg capsule 1,200 mg PO DAILY 06/21/22 08/15/23 multivitamin 1 tablet PO DAILY 06/21/22 08/15/23 omega-3 fatty acids 1,000 mg PO DAILY 06/21/22 08/15/23 Allergies Allergy/AdvReac Type Severity Reaction Status Date / Time No Known Allergies Allergy Unknown NONE Verified 08/15/23 11:23 Review of Systems Review of Systems: All systems reviewed & are unremarkable except as noted in HPI and below Constitutional: Constitutional: Reports no additional constitutional complaints Eyes: Eyes: Reports no additional eye complaints ENT: Reports system reviewed and no additional complaints, except as documented Cardiovascular: Cardiovascular: Reports no additional cardiovascular complaints, Denies chest pain and Denies dyspnea Respiratory: Respiratory: Reports no additional respiratory complaints, Denies chest congestion, Denies cough and Denies dyspnea Gastrointestinal: Gastrointestinal: Reports no additional gastrointestinal complaints, Denies abdominal pain, Denies nausea and Denies vomiting Musculoskeletal: Musculoskeletal: Reports as per HPI Integumentary/Breasts: Skin/Breast: Reports system reviewed and no additional complaints, except as docu Neurologic: Reports system reviewed and no additional complaints, except as documented Psychiatric: Psychiatric: Reports no additional psychiatric complaints Allergic/Immunologic: Allergic/Immunologic: Reports no additional allergic/immunologic complaints [facility] Past Medical History Medical History Acquired hypothyroidism CKD (chronic kidney disease), stage III Gastro-esophageal reflux disease without esophagitis Hy kid NOS w cr kid I-IV Hypertension Obesity Pure hypercholesterolemia Surgical History Surgical History H/O carpal tunnel repair bilateral History of tonsillectomy Hx laparoscopic cholecystectomy 01/11/22 Family History Family History Sibling Patient's sister is in good health Patient's brother is in good health Hypertension Family history of diabetes mellitus in first degree relative Family history of primary malignant neoplasm of liver Father Family history of malignant neoplasm Mother Family history of malignant neoplasm Social History Social History Smoking status: Never smoker Second hand tobacco smoke exposure: No Alcohol intake: never Drinks per week: 1 Substance use: never Substance use type: does not use Living arrangements: with family Additional living arrangements comments: LIVES WITH [facility] [employer] Occupation/Education: retired Gender identity (if verbalized by the patient): Female Sexual Orientation (if Verbalized by the Patient): Straight or Heterosexual Spiritual care concerns: No Comments At the time of my signature, I reviewed and agree with the nursing past medical, surgical, social, and family history. There is no relevant family history pertinent to the patient complaint. Exam Const: General: cooperative, healthy appearing, comfortable, no acute distress, well developed, alert and well nourished Nutritional Appearance: well nourished Orientation/consciousness: patient oriented x3 Limitations:
== END 2023-08-15 12:33 | disposition home or self-care (01) ==
PROVIDERS: Emergency Provider Nurse Practitioner; PCP Family Medicine
DX: M25.461 Effusion, right knee (principal); M17.11 Unilateral primary osteoarthritis, right knee; I12.9 Hypertensive chronic kidney disease with stage 1 through stage 4 chronic kidney disease, or unspecified chronic kidney disease; N18.30 Chronic kidney disease, stage 3 unspecified; E03.9 Hypothyroidism, unspecified; K21.9 Gastro-esophageal reflux disease without esophagitis; E66.9 Obesity, unspecified; Z68.25 Body mass index [BMI] 25.0-25.9, adult; E78.00 Pure hypercholesterolemia, unspecified
CPT/HCPCS: 73564; 99213; G0463

== ENCOUNTER 2023-08-16 10:40 | Outpatient (CLI) | payer OTHER, SELFPAY ==
--- NOTE | ~2023-08-16 | DEXA_ITS ---
Bone Density Report Name: TORIBIO SANTAMARIA Age: 87 Sex: Female Ethnicity: White Date of : 1935 Indication: osteopenia; height loss; prior fracture; postmenopausal Referring Provider: GIULIANA VILLEDA Study: Bone densitometry was performed. Exam Date: August 16, 2023 Accession number: [id number] Bone Density: Region BMD T-score Z-score Classification AP Spine(L1-L4) 1.019 -0.3 2.6 Normal Femoral Neck (Left) 0.559 -2.6 -0.1 Osteoporosis Total Hip (Left) 0.739 -1.7 0.7 Osteopenia Femoral Neck (Right) 0.587 -2.4 0.2 Osteopenia Total Hip (Right) 0.771 -1.4 0.9 Osteopenia Total Hip Mean 0.755 -1.6 0.8 Osteopenia World Health Organization criteria for BMD impression classify patients as: Normal (T-score at or above -1.0), Osteopenia (T-score between -1.0 and -2.5), or Osteoporosis (T-score at or below -2.5). 10-year Fracture Risk: FRAX not reported because: Some T-score for Spine Total or Hip Total or Femoral Neck at or below -2.5 Previous Exams: Region Exam Age BMD T-score BMD Change BMD Change Date g/cm2 vs Baseline vs Previous AP Spine (L1-L4) 08/16/2023 87 1.019 -0.3 0.045 (4.6%)* 0.045 (4.6%)* 01/31/2021 85 0.974 -0.7 Total Hip(Left) 08/16/2023 87 0.739 -1.7 -0.036 (-4.7%) -0.036 (-4.7%) 01/31/2021 85 0.775 -1.4 Total Hip(Right) 08/16/2023 87 0.771 -1.4 -0.026 (-3.3%) -0.026 (-3.3%) 01/31/2021 85 0.797 -1.2 *Denotes significance at 95% confidence level, LSC for AP Spine = 0.022 g/cm2, LSC for Total Hip = 0.027 g/cm2 Clinical Information Provided by Patient: Has had a low trauma fracture Has used the following medications: Calcium Patient maximum height was 64 Menopause Age: 52 Onset of menses at age 21 Number of children 3 Impression: The patient has established osteoporosis, based on the Left Femoral Neck T-score and the existence of a prior fracture. The patient has risk factors, including: previous fracture. The BMD for the Total Hip(Left) decreased, changing by -4.7% since the last DXA exam. Discussion: HIGH RISK OF FRACTURE. BONE DENSITY IS UNDESIRABLY LOW AT ONE OR MORE SKELETAL SITES, CONSISTENT WITH POSTMENOPAUSAL OSTEOPOROSIS. This patient's lowest T-score, in a patient who has previously fractured, meets the World Health Organization's (WHO) criteria for severe osteoporosis. In untreated patients, the risk of osteoporotic fracture increases approximately two-fold for each 1.0 SD decrease in
== END 2023-08-16 10:41 | disposition home or self-care (01) ==
PROVIDERS: PCP Family Medicine; Visit Provider Family Medicine
DX: M81.0 Age-related osteoporosis without current pathological fracture (principal); Z78.0 Asymptomatic menopausal state
CPT/HCPCS: 77080

== ENCOUNTER 2023-11-04 12:44 | Outpatient (CLI) | payer OTHER, SELFPAY ==
--- NOTE | ~2023-11-04 | MM_ITS ---
EXAMINATION: MM screening [facility] BI w ronaldo HISTORY: Screening TECHNIQUE: Craniocaudal and mediolateral oblique 3-D tomosynthesis images were obtained and synthetic 2-D images were generated. CAD analysis was submitted and interpreted. COMPARISON: Comparison to multiple prior studies sequentially, with oldest reviewed study dated 05/05. BREAST PARENCHYMAL COMPOSITION: There are scattered areas of fibroglandular density. FINDINGS: There is no evidence of suspicious mass, calcification, or architectural distortion to sugg est malignancy in either breast. There has been no suspicious interval change. IMPRESSION: 1. No mammographic evidence of malignancy. 2. Recommend routine screening mammography in one year. BI-RADS Category 1: Negative Reviewed, dictated and finalized at location A. OIDERY DESIGNER
== END 2023-11-04 12:45 | disposition home or self-care (01) ==
PROVIDERS: PCP Family Medicine; Visit Provider Family Medicine
DX: Z12.31 Encounter for screening mammogram for malignant neoplasm of breast (principal)
CPT/HCPCS: 77063; 77067

== ENCOUNTER 2023-12-25 09:24 | Outpatient (CLI) | payer OTHER, SELFPAY ==
[2023-12-25 09:51] LABS: Hematocrit 37.1 % (37.0-47.0); Hemoglobin 13.1 g/dL (12.0-15.0); Mean Corpuscular HGB Conc 35.3 g/dl (32-36); Mean Corpuscular Hemoglobin 33.9 pg (26-34); Mean Corpuscular Volume 95.9 fl (80-100); Mean Platelet Volume 9.2 fl (7.4-10.4); Platelet Count Result 306 k/mm3 (150-375); Red Blood Count 3.87 M/mm3 (4.2-5.4); Red Cell Distribution Width 12.1 % (11.5-14.5); White Blood Count 5.2 K/mm3 (4.5-10.0)
[2023-12-25 09:57] LABS: Appearance Urine Clear (Clear); Bacteria Urine None Seen /hpf; Bilirubin Urine Negative (Negative); Blood Urine Negative (Negative); Color Urine Yellow (Yellow); Glucose Urine UA Negative (Negative); Ketones Urine Negative (Negative); Leukocyte Esterase Ur Trace LEU/UL (Negative); Nitrate Urine Negative (Negative); Non Pathogenic Casts 0-2; Protein Urine Negative (Negative); RBC Urine 0-2 /hpf (0-2); Specific Grav Ur 1.012 (1.001-1.035); Squamous Epithelial Cell Urine None Seen /hpf (Few); Urobilinogen Urine 0.2 mg/dL (<2.0); WBC Urine 0-5 /hpf (0-3); pH Urine 6.5 (5.0-9.0)
[2023-12-25 10:05] LABS: Add Urine Microscopic? YES
[2023-12-25 11:00] LABS: Alanine Aminotransferase 13 U/L (6-35); Albumin Level 4.6 g/dL (3.5-5.1); Alkaline Phosphatase 44 U/L (38-126); Anion Gap 5 mmol/L (8-16); Aspartate Amino Transferase 27 U/L (14-36); Bilirubin,Total 0.6 mg/dL (0.2-1.3); Blood Urea Nitrogen 12 mg/dL (7-17); Calcium 10.2 mg/dL (8.4-10.2); Carbon Dioxide 28 mmol/L (22-30); Chloride 100 mmol/L (98-107); Cholesterol 178 mg/dL (0-200); Estimated Glomerular Filt Rate 59; Glucose 91 mg/dL (65-110); HDL Direct 76 mg/dL; Potassium 3.9 mmol/L (3.4-5.0); Sodium 133 mmol/L (137-145); Triglycerides 134 mg/dL (<150)
[2023-12-25 11:11] LABS: LDL Cholesterol Direct 74 mg/dL
[2023-12-26 10:28] LABS: Hemoglobin A1C 4.9 % (<5.7)
== END 2023-12-25 09:25 | disposition home or self-care (01) ==
PROVIDERS: PCP Family Medicine; Visit Provider Family Medicine
DX: I12.9 Hypertensive chronic kidney disease with stage 1 through stage 4 chronic kidney disease, or unspecified chronic kidney disease (principal); N18.30 Chronic kidney disease, stage 3 unspecified; E03.9 Hypothyroidism, unspecified; R73.01 Impaired fasting glucose; Z00.00 Encounter for general adult medical examination without abnormal findings
CPT/HCPCS: 36415; 80053; 80061; 83036; 84443; 85027

== ENCOUNTER 2024-05-27 08:33 | Outpatient (CLI) | payer OTHER, SELFPAY ==
--- NOTE | ~2024-05-27 | US_ITS ---
EXAMINATION: US soft tissue head and neck DATE: 05/27/2024 09:18 INDICATION: Right cheek mass. TECHNIQUE: Multiple grayscale and Doppler ultrasound images of the head and neck were obtained. COMPARISON: None FINDINGS: In the right cheek, there is a 1.4 x 0.7 x 0.8 cm hypoechoic mass near the mandible. IMPRESSION: 1. Small mass near the mandible, most likely a normal lymph node. Reviewed, dictated and finalized at location A.
== END 2024-05-27 08:34 | disposition home or self-care (01) ==
PROVIDERS: PCP Family Medicine; Visit Provider Physician Assistant
DX: K13.79 Other lesions of oral mucosa (principal)
CPT/HCPCS: 76536

== ENCOUNTER 2024-07-01 13:24 | Outpatient (CLI) | payer OTHER, SELFPAY ==
[2024-07-01 17:39] LABS: Anion Gap 11 mmol/L (4-12); Blood Urea Nitrogen 11 mg/dL (7-17); Carbon Dioxide 25 mmol/L (22-30); Chloride 93 mmol/L (98-107); Potassium 3.9 mmol/L (3.4-5.0); Sodium 129 mmol/L (137-145)
[2024-07-01 17:40] LABS: Alanine Aminotransferase 12 U/L (6-35); Albumin Level 4.7 g/dL (3.5-5.1); Alkaline Phosphatase 42 U/L (38-126); Aspartate Amino Transferase 28 U/L (14-36); Bilirubin,Total 0.4 mg/dL (0.2-1.3); Calcium 9.7 mg/dL (8.4-10.2); Estimated Glomerular Filt Rate > 60; Glucose 91 mg/dL (65-110)
== END 2024-07-01 13:25 | disposition home or self-care (01) ==
LOC: ANHLAB 13:28
PROVIDERS: PCP Family Medicine; Visit Provider Family Medicine
DX: E03.9 Hypothyroidism, unspecified (principal); E87.1 Hypo-osmolality and hyponatremia; I12.9 Hypertensive chronic kidney disease with stage 1 through stage 4 chronic kidney disease, or unspecified chronic kidney disease; N18.9 Chronic kidney disease, unspecified
CPT/HCPCS: 36415; 80053; 84443

== ENCOUNTER 2024-11-10 08:41 | Outpatient (CLI) | payer OTHER, SELFPAY ==
--- NOTE | ~2024-11-10 | MM_ITS ---
EXAMINATION: MM screening [facility] BI w ronaldo HISTORY: Screening TECHNIQUE: Craniocaudal and mediolateral oblique 3-D tomosynthesis images were obtained and synthetic 2-D images were generated. CAD analysis was submitted and interpreted. COMPARISON: Comparison to multiple prior studies sequentially, with oldest reviewed study dated 12/2027. BREAST PARENCHYMAL COMPOSITION: Not dense: There are scattered areas of fibroglandular density. FINDINGS: There is no evidence of suspicious mass, calcification, or architectural distortion to sugg est malignancy in either breast. There has been no suspicious interval change. IMPRESSION: 1. No mammographic evidence of malignancy. 2. Recommend routine screening mammography in one year. BI-RADS Category 1: Negative Reviewed, dictated and finalized at location [] INAL DEFENSE ATTORNEY
== END 2024-11-10 08:42 | disposition home or self-care (01) ==
PROVIDERS: PCP Family Medicine; Visit Provider Family Medicine
DX: Z12.31 Encounter for screening mammogram for malignant neoplasm of breast (principal)
CPT/HCPCS: 77063; 77067

== ENCOUNTER 2024-12-29 08:53 | Outpatient (CLI) | payer OTHER, SELFPAY ==
[2024-12-29 09:32] LABS: Add Urine Microscopic? NO; Appearance Urine Clear (Clear); Bilirubin Urine Negative (Negative); Blood Urine Negative (Negative); Color Urine Yellow (Yellow); Glucose Urine UA Negative (Negative); Ketones Urine Negative (Negative); Leukocyte Esterase Ur Negative LEU/UL (Negative); Nitrate Urine Negative (Negative); Protein Urine Negative (Negative); Urobilinogen Urine 0.2 mg/dL (<2.0)
[2024-12-29 09:33] LABS: Hematocrit 38.7 % (37.0-47.0); Hemoglobin 13.3 g/dL (12.0-15.0); Mean Corpuscular HGB Conc 34.4 g/dl (32-36); Mean Corpuscular Hemoglobin 32.4 pg (26-34); Mean Corpuscular Volume 94.4 fl (80-100); Mean Platelet Volume 9.2 fl (7.4-10.4); Platelet Count Result 325 k/mm3 (150-375); Red Cell Distribution Width 12.6 % (11.5-14.5); White Blood Count 4.4 K/mm3 (4.5-10.0)
[2024-12-29 09:39] LABS: Hemoglobin A1C 5.1 % (<5.7)
[2024-12-29 09:48] LABS: Alanine Aminotransferase 14 U/L (6-35); Albumin Level 4.7 g/dL (3.5-5.1); Alkaline Phosphatase 45 U/L (38-126); Anion Gap 10 mmol/L (4-12); Aspartate Amino Transferase 25 U/L (14-36); Bilirubin,Total 0.7 mg/dL (0.2-1.3); Blood Urea Nitrogen 10 mg/dL (7-17); Calcium 9.8 mg/dL (8.4-10.2); Carbon Dioxide 25 mmol/L (22-30); Chloride 98 mmol/L (98-107); Cholesterol 174 mg/dL (0-200); Estimated Glomerular Filt Rate 60; Glucose 93 mg/dL (65-110); HDL Direct 87 mg/dL; Potassium 4.1 mmol/L (3.4-5.0); Sodium 133 mmol/L (137-145); Triglycerides 82 mg/dL (<150)
[2024-12-29 09:59] LABS: LDL Cholesterol Direct 56 mg/dL
== END 2024-12-29 08:54 | disposition home or self-care (01) ==
LOC: ANHLAB 08:55
PROVIDERS: PCP Family Medicine; Visit Provider Family Medicine
DX: E66.9 Obesity, unspecified (principal); I12.9 Hypertensive chronic kidney disease with stage 1 through stage 4 chronic kidney disease, or unspecified chronic kidney disease; N18.30 Chronic kidney disease, stage 3 unspecified; R73.01 Impaired fasting glucose; E03.9 Hypothyroidism, unspecified; E87.1 Hypo-osmolality and hyponatremia; Z00.00 Encounter for general adult medical examination without abnormal findings
CPT/HCPCS: 36415; 80053; 80061; 81003; 83036; 84443; 85027

== ENCOUNTER 2025-02-08 18:01 | Emergency (ER) | payer OTHER, SELFPAY ==
--- NOTE | ~2025-02-08 | CT_ITS ---
History: Fall PROCEDURE: CT cervical spine without intravenous contrast. COMPARISON: None TECHNIQUE: Multiple contiguous axial images of the cervical spine were performed without the administration of i ntravenous contrast. DLP: 156 mGy-cm FINDINGS: 30 degrees of levoscoliotic curvature of the cervical spine is identified. Significant degenerative disease is also noted, with osteophyte formation, disc space narrowing, endp late changes and subchondral cyst formation. Facet arthropathy is also noted. Diffuse bony demineralization is present. The first rib is intact. Air is identified within the soft tissues of the anterior lateral right chest wall. Acute displaced, comminuted fracture of the lateral margin of the second rib is present. With adjacen t pleural thickening and a sizable right-sided pneumothorax, between 20 and 30%. The left lung apex is unremarkable. No soft tissue abnormality is present. The airway is patent. Impression: Multiple right upper rib fractures are identified, with adjacent right-sided pneumothorax, as detaile d above. These findings were discussed with Dr. Marvin at 10:00 PM on 02/08/2025. Reviewed, dictated and finalized at location A. Impression: Multiple right upper rib fractures are identified, with adjacent right-sided pn eumothorax, as detailed above. These findings were discussed with Dr. Marvin at 10:00 PM on 02/08/2025.
--- NOTE | ~2025-02-08 | XR_ITS ---
HISTORY: injury COMPARISON: None TECHNIQUE: 2 views of the right shoulder were performed FINDINGS: Acute minimally displaced fractures of the right second, third and fourth ribs are suspected. Fracture of the right second and third ribs are suspected to be in 2 separate locations. A right-sided pneumothorax is also noted, approximately 30%. The glenohumeral and acromioclavicular joint space is narrowed. The humeral head is well seated within the glenoid fossa. IMPRESSION: Multiple right-sided rib fractures with a right-sided pneumothorax, approximately 30%, as detailed ab ove. No acute fracture within the right shoulder or anterior dislocation. These findings were discussed with Dr. Marvin at 10:00 PM on 02/08/2025 Reviewed, dictated and finalized at location A. IMPRESSION: Multiple right-sided rib fractures with a right-sided pneumothorax, approximate ly 30%, as detailed above. No acute fracture within the right shoulder or anterior dislocation. These findings were discussed with Dr. Marvin at 10:00 PM on 02/08/2025
--- NOTE | ~2025-02-08 | CT_ITS ---
CLINICAL INDICATION: Fall COMPARISON: Reference is made to plain film evaluation of the right shoulder, chest and cervical spin e, performed approximately 3 hours earlier. TECHNIQUE: Multiple contiguous axial images of the chest, abdomen and pelvis were performed without t he administration of intravenous contrast The dose-length product (DLP) was 946.38 mGy-cm. Automated exposure control and iterative reconstruction technique were employed. FINDINGS/OBSERVATIONS: LUNG: Redemonstration of a right-sided pneumothorax, approximately 15-20% with approximately 26 mm of separation. A small right-sided hemothorax is also noted MEDIASTINUM: Limited evaluation without intravenous contrast. HEART: The heart is borderline enlarged, without pericardial effusion. SOFT TISSUES OF THE CHEST: Subcutaneous air is identified along the posterior lateral margin of the r ight chest. Remaining soft tissues are otherwise unremarkable.. BONES OF THE CHEST: Acute fractures involving the right posterior lateral second through eighth ribs. The third and fourth ribs are broken in [address], worrisome for flail chest. Liver: The liver demonstrates homogeneous attenuation and is not enlarged. No perihepatic fluid to suggest acute traumatic injury. Gallbladder and biliary system: The gallbladder is surgically absent. Pancreas: Limited evaluation of the pancreas secondary to the lack of intravenous contrast. No peripancreatic fluid is identified to suggest acute traumatic injury. Spleen: The spleen demonstrates homogeneous attenuation and is not enlarged. No perisplenic fluid is identified to suggest acute traumatic injury. Kidneys: The bilateral kidneys are unremarkable, without hydronephrosis or renal calculi. No perirenal fluid is identified to suggest acute traumatic injury. Adrenal glands: Unremarkable. Gastrointestinal tract: Colonic diverticulosis without surrounding inflammatory change. No free fluid within the abdomen or pelvis. Vasculature: Unremarkable. Lymph nodes: Limited evaluation without intravenous contrast. Pelvic structures: The bladder is distended, and otherwise unremarkable. The uterus is anteverted and anteflexed, and somewhat atrophic. Body wall and musculoskeletal: Complex fat-containing umbilical hernia. Age-appropriate degenerative disease within the lower thoracic and lumbosacral spines. No acute compression fracture within the thoracic or lumbar spines. No acute sternal fracture. IMPRESSION: Right-sided hemopneumothorax. Acute fractures involving the right second through eighth ribs with the right third and fourth ribs f ractured in 2 separate locations, worrisome for flail chest. No hollow or solid visceral organ injury. Reviewed, dictated and finalized at location A. IMPRESSION: Right-sided hemopneumothorax. Acute fractures involving the right second through eighth ribs with the right t hird and fourth ribs fractured in 2 separate locations, worrisome for flail lala st. No hollow or solid visceral organ injury.
--- NOTE | ~2025-02-08 | XR_ITS ---
HISTORY: R ptx COMPARISON: None TECHNIQUE: 3 views of the right ribs were performed along with a frontal view of the chest FINDINGS: Acute, minimally displaced fractures are identified within the right posterior lateral chest wall, wi thin the right second, third, fourth, fifth, sixth, seventh and eighth ribs. The second, third and fourth ribs may be broken and 2 separate sites, suggesting flail chest. Air within the soft tissues of the lateral chest wall are noted, consistent with patient's known righ t-sided pneumothorax. The right-sided pneumothorax appears smaller than on plain film evaluation of the right shoulder, wit h approximately 23 mm of separation. IMPRESSION: Multiple right posterior lateral rib fractures, some in 2 separate sites worrisome for f tasha chest, as detailed above. Redemonstration of a right-sided pneumothorax, now measuring approximately 10-15%, possibly related t o technique. The patient's chest is rotated towards the left side, rendering the evaluation for a tension pneumoth orax limited. Reviewed, dictated and finalized at location A. IMPRESSION: Multiple right posterior lateral rib fractures, some in 2 separate sites worrisome for flail chest, as detailed above. Redemonstration of a right-sided pneumothorax, now measuring approximately 10-1 5%, possibly related to technique. The patient's chest is rotated towards the left side, rendering the evaluation for a tension pneumothorax limited.
--- NOTE | ~2025-02-08 | CT_ITS ---
History: Fall PROCEDURE: CT head without contrast. COMPARISON: None TECHNIQUE: Axial imaging of the head performed from the skull base to the vertex without IV contrast. Sagittal a nd coronal reformations obtained. DLP: 605 mGy-cm FINDINGS: The ventricles are enlarged. The dilatation of the ventricles is proportional to the degree of sulcal prominence, not uncommon in the senescent brain. Decreased attenuation is identified within the periventricular white matter, likely secondary to micr ovascular ischemic disease, in a patient of this age. There is no mass, mass effect or midline shift. There is no abnormal extra-axial fluid collection or intracranial hemorrhage. Visualized paranasal sinuses are clear. The mastoid air cells are small, likely congenital. No acute displaced fractures within the overlying cranium. Impression: No acute intracranial hemorrhage or suspicious mass effect. Reviewed, dictated and finalized at location A. Impression: No acute intracranial hemorrhage or suspicious mass effect.
[2025-02-08 18:39] VITALS: BP 135/81; PULSE 79; RESP 16; TEMP 36.8; O2SAT 98
[2025-02-08] MEDS: oxyCODONE HCL (*CRX) 5 MG TAB IR PO (21:08)
--- NOTE | 2025-02-08 21:43 | ED_ITS ---
HPI - Fall General Chief Complaint: Fall Stated Complaint: Fell down several stairs-back pain Time Seen by Provider: 02/08/25 20:22 History of Present Illness HPI Narrative: Patient lost her balance in fell down a few steps, she mostly try to catch her fall with her right arm and reports pain to the right shoulder/right upper back, no head or neck pain, no loss consciousness. No chest pain or shortness of breath or injury elsewhere Related Data Home Medications ?Medication ?Instructions ?Recorded ?Confirmed ?Last Taken ?Type calcium 600 mg capsule 1,200 mg PO DAILY 06/21/22 01/18/25 Unknown History multivitamin 1 tablet PO DAILY 06/21/22 01/18/25 Unknown History omega-3 fatty acids 1,000 mg PO DAILY 06/21/22 01/18/25 Unknown History Allergies Allergy/AdvReac Type Severity Reaction Status Date / Time No Known Allergies Allergy Unknown NONE Verified 01/18/25 14:43 Review of Systems 2 Review of Systems: All systems reviewed & are unremarkable except as noted in HPI and below PMFSH Past Medical History Medical History CKD (chronic kidney disease), stage III Hypertension Obesity Hy kid NOS w cr kid I-IV Acquired hypothyroidism Gastro-esophageal reflux disease without esophagitis Pure hypercholesterolemia Surgical History Surgical History H/O carpal tunnel repair bilateral Hx laparoscopic cholecystectomy 01/11/22 History of tonsillectomy Family History Family History Sibling Patient's sister is in good health Patient's brother is in good health Hypertension Family history of diabetes mellitus in first degree relative Family history of primary malignant neoplasm of liver Father Family history of malignant neoplasm Mother Family history of malignant neoplasm Social History Social History Smoking status: Never smoker Second hand tobacco smoke exposure: No Alcohol intake: never Drinks per week: 1 Substance use: never Substance use type: does not use Living arrangements: with family Additional living arrangements comments: LIVES WITH SPOUSE [employer] Occupation/Education: retired Gender identity (if verbalized by the patient): Female Sexual Orientation (if Verbalized by the Patient): Straight or Heterosexual Spiritual care concerns: No Exam 2 Narrative: EXAMINATION OF ORGAN SYSTEMS/BODY AREAS: Constitutional: Vital signs per nursing GENERAL:[No acute distress, non-toxic appearing.] HEAD: Normal with no signs of head trauma. EYES: EOMI, conjunctiva normal ENT: Hearing grossly intact LUNGS: Nonlabored breathing. HEART: [Regular rate and rhythm] ABD: [Soft], [nontender to palpation] BACK: No midline tenderness from neck to tailbone EXT: Normal range of motion; some tenderness to the right scapula; no tenderness palpation of any other extremity. Pelvis stable and nontender SKIN: [No rashes or lesions.] NEURO: [Alert. No gross focal sensory or strength deficits.] PSYCH: Normal affect Course Vital Signs Vital signs: Vital Signs Temperature 98.3 F 02/08/25 18:39 Pulse Rate 79 02/08/25 18:39 Respiratory Rate 16 02/08/25 18:39 Blood Pressure 135/81 02/08/25 18:39 Pulse Oximetry 98 02/08/25 18:39 Oxygen Delivery Room Air 02/08/25 18:39 Temperature 98.3 F 02/08/25 18:39 Pulse Rate 82 02/09/25 00:00 Respiratory Rate 18 02/09/25 00:00 Blood Pressure 141/58 H 02/09/25 00:00 Pulse Oximetry 100 02/09/25 00:00 Oxygen Delivery Room Air 02/08/25 18:39 MDM - Fall MDM Narrative Medical decision making narrative: Patient presents after fall when she tripped, she is reporting pain to the right back/shoulder. No obvious bony deformity. Imaging of CT head, C-spine and right shoulder caught pneumothorax with multiple rib fractures, I did immediately re-evaluate the patient and put her on non- rebreather however she is denying any shortness of breath or difficulty breathing were significant chest pain. I did feel she would be stable for quick dedicated rib/chest films and she tolerated this very well, with diminished pneumothorax. Discussed with family that she may need to be transferred for trauma center and called Trauma [facility] who requested CT chest abdomen pelvis. This is obtained and shows a small hemopneumothorax along with 8 rib fractures; clinically does not seem to have any flail chest or difficulty breathing. [facility] has accepted patient for transfer ER to ER by Dr Yip. Patient/son updated. Lab Data 02/08/25 23:19 02/08/25 23:19 Labs: Lab Results 02/08/25 02/08/25 Range/Units 23:18 23:19 WBC 13.3 H (4.5-10.0) K/mm3 RBC 3.99 L (4.2-5.4) M/mm3 Hgb 13.0 (12.0-15.0) g/dL Hct 36.6 L (37.0-47.0) % MCV 91.7 (80-100) fl MCH 32.6 (26-34) pg MCHC 35.5 (32-36) g/dl RDW 12.3 (11.5-14.5) % Plt Count 311 (150-375) k/mm3 MPV 8.8 (7.4-10.4) fl Immature Gran % (Auto) 0.5 (0-0.5) % Neut % (Auto) 90.1 H (45.5-73.1) % Lymph % (Auto) 4.8 L (18.3-44.2) % [place] % (Auto) 4.4 (2.6-8.5) % Eos % (Auto) 0.0 (0-4.4) % Baso % (Auto) 0.2 (0.2-1.2) % Lymph # (Auto) 0.64 L (0.9-3.2) K/mm3 [place] # (Auto) 0.6 (0.1-0.6) K/mm3 Eos # (Auto) 0.0 (0-0.3) K/mm3 Baso # (Auto) 0.0 (0.0-0.1) K/mm3 Abs Immat Gran (auto) 0.06 H (0.00-0.031) K/mm3 Absolute Neuts (auto) 12.0 H (1.3-6.7) K/mm3 Absolute Nucleated RBC 0.000 (0.0-0.012) K/mm3 Nucleated RBC % 0.0 (0.0-0.2) % Sodium 127 L (137-145) mmol/L Potassium 3.8 (3.4-5.0) mmol/L Chloride 92 L (98-107) mmol/L Carbon Dioxide 23 (22-30) mmol/L Anion Gap 12 (4-12) mmol/L BUN 17 (7-17) mg/dL Creatinine 0.94 (0.7-1.0) mg/dL Estim Creat Clear Calc Not Reportable Estimated GFR 56 L (59 - ) Glucose 139 H (65-110) mg/dL Calcium 10.9 H (8.4-10.2) mg/dL Total Bilirubin 0.8 (0.2-1.3) mg/dL Direct Bilirubin 0.0 (0-0.3) mg/dL AST 48 H (14-36) U/L ALT 28 (6-35) U/L Alkaline Phosphatase 52 (38-126) U/L Total Protein 8.0 (6.3-8.2) g/dL Albumin 4.9 (3.5-5.1) g/dL Critical Care Time Critical Care Time Critical Care Time: Yes Total Critical Care Time: 31 Discharge Plan Discharge Clinical Impression: Multiple fractures of ribs, Hemopneumothorax on right Patient Disposition: Acute Care Hospital Condition: Serious Patient Language: American Prescriptions: No Action buspirone 5 mg tablet 5 mg PO BID PRN (Reason: anxiety) Qty: 60 5RF multivitamin Tablet 1 tablet PO DAILY calcium 600 mg Capsule 1,200 mg PO DAILY omega-3 fatty acids Capsule 1,000 mg PO DAILY hydrocodone-acetaminophen 5-325 mg tablet 1 tablet PO Q6H PRN (Reason: pain) Qty: 5 0RF famotidine 40 mg tablet 40 mg PO DAILY Qty: 90 3RF amlodipine 10 mg tablet 10 mg PO DAILY Qty: 90 3RF Patient Comments: QAM Rx Instructions: Take 1 tablet by mouth once daily alendronate [Fosamax] 70 mg tablet 70 mg PO WEEKLY Qty: 12 3RF pravastatin 40 mg tablet 40 mg PO QPM Qty: 90 3RF hydrochlorothiazide 12.5 mg capsule 12.5 mg PO DAILY Qty: 90 2RF levothyroxine 75 mcg tablet 75 mcg PO DAILY Qty: 90 2RF Rx Instructions: before breakfast Follow-up/Referrals: Bryn Nicolas MD [Primary Care Provider] -
[2025-02-08 22:00] VITALS: BP 140/61; PULSE 85; RESP 15; O2SAT 100
[2025-02-08 23:00] VITALS: BP 142/65; PULSE 84; RESP 22; O2SAT 100
[2025-02-08 23:24] LABS: Basophils Percent Auto 0.2 % (0.2-1.2); Hematocrit 36.6 % (37.0-47.0); Immature Granulocyte Absolute 0.06 K/mm3 (0.00-0.031); Immature Granulocyte Percent A 0.5 % (0-0.5); Lymphocytes Absolute Auto 0.64 K/mm3 (0.9-3.2); Lymphocytes Percent Auto 4.8 % (18.3-44.2); Mean Corpuscular HGB Conc 35.5 g/dl (32-36); Mean Corpuscular Hemoglobin 32.6 pg (26-34); Mean Corpuscular Volume 91.7 fl (80-100); Mean Platelet Volume 8.8 fl (7.4-10.4); Monocytes Absolute Auto 0.6 K/mm3 (0.1-0.6); Monocytes Percent Auto 4.4 % (2.6-8.5); Neutrophils Percent Auto 90.1 % (45.5-73.1); Platelet Count Result 311 k/mm3 (150-375); Red Blood Count 3.99 M/mm3 (4.2-5.4); Red Cell Distribution Width 12.3 % (11.5-14.5); White Blood Count 13.3 K/mm3 (4.5-10.0)
[2025-02-08 23:38] LABS: Anion Gap 12 mmol/L (4-12); Blood Urea Nitrogen 17 mg/dL (7-17); Calcium 10.9 mg/dL (8.4-10.2); Carbon Dioxide 23 mmol/L (22-30); Chloride 92 mmol/L (98-107); Estimated Glomerular Filt Rate 56; Glucose 139 mg/dL (65-110); Potassium 3.8 mmol/L (3.4-5.0); Sodium 127 mmol/L (137-145)
[2025-02-08 23:39] LABS: Alanine Aminotransferase 28 U/L (6-35); Albumin Level 4.9 g/dL (3.5-5.1); Alkaline Phosphatase 52 U/L (38-126); Aspartate Amino Transferase 48 U/L (14-36); Bilirubin,Total 0.8 mg/dL (0.2-1.3)
[2025-02-09] VITALS: BP 141/58; PULSE 82; RESP 18; O2SAT 100
[2025-02-09 01:51] VITALS: BP 143/53; PULSE 84; RESP 22; O2SAT 100
[2025-02-09] MEDS: MORPHINE SULFATE (*CRX) 4 MG/ML INJ IV PUSH (02:08)
== END 2025-02-09 03:05 | disposition short-term general hospital (02) ==
PROVIDERS: Emergency Provider Emergency Medicine; PCP Family Medicine
DX: S22.41XA Multiple fractures of ribs, right side, initial encounter for closed fracture (principal); S27.2XXA Traumatic hemopneumothorax, initial encounter; I12.9 Hypertensive chronic kidney disease with stage 1 through stage 4 chronic kidney disease, or unspecified chronic kidney disease; N18.30 Chronic kidney disease, stage 3 unspecified; E03.9 Hypothyroidism, unspecified; K21.9 Gastro-esophageal reflux disease without esophagitis; E78.5 Hyperlipidemia, unspecified; W10.9XXA Fall (on) (from) unspecified stairs and steps, initial encounter
CPT/HCPCS: 36415; 70450; 71101; 71250; 72125; 73030; 74176; 80048; 80076; 85025; 96374; 99285; A9270; J2270

== ENCOUNTER 2025-06-30 13:29 | Outpatient (CLI) | payer OTHER, SELFPAY ==
[2025-06-30 14:25] LABS: Alanine Aminotransferase 11 U/L (6-35); Albumin Level 4.4 g/dL (3.5-5.1); Alkaline Phosphatase 49 U/L (38-126); Anion Gap 7 mmol/L (4-12); Aspartate Amino Transferase 27 U/L (14-36); Bilirubin,Total 0.4 mg/dL (0.2-1.3); Blood Urea Nitrogen 13 mg/dL (7-17); Calcium 9.4 mg/dL (8.4-10.2); Carbon Dioxide 26 mmol/L (22-30); Chloride 97 mmol/L (98-107); Estimated Glomerular Filt Rate > 60; Glucose 101 mg/dL (65-110); Potassium 3.6 mmol/L (3.4-5.0); Sodium 130 mmol/L (137-145); Total Protein 8.0 g/dL (6.3-8.2)
[2025-06-30 15:01] LABS: Thyroid Stimulating Hormone 2.720 uIU/mL (0.465-4.680)
[2025-06-30 15:40] LABS: Hemoglobin A1C 5.1 % (<5.7)
--- OUTSIDE RECORDS SUMMARY | 2025-06-30 16:22 | XMS_ITS | Clinical Summary ---
Author Organization [facility] [place] [address] Address [address] [place] [address] Care Team Providers Care Newscast Producer Name Role Phone Bryn Nicolas MD Primary Care Provider Miscellaneous, Not In File Unavailable Unava ilable Allergies No known active allergies Medications alendronate (FOSAMAX) 70 mg tablet Take 1 tablet (70 mg total) by mouth every 7 days 12/13/19 25 Active amLODIPine (NORVASC) 10 mg tablet Take 1 tablet (10 mg total) by mouth daily 12/19/19 25 Active busPIRone (BUSPAR) 5 mg tablet Take 1 tablet (5 mg total) by mouth 2 (two) times a day as needed 12/06/19 25 Active famotidine (PEPCID) 40 mg tablet Take 1 tablet (40 mg total) by mouth 2 (two) times a day 01/18/20 25 Active hydroCHLOROthia zide (MICROZIDE) 12.5 mg capsule Take 1 capsule (12.5 mg total) by mouth daily 01/18/20 25 Active Synthroid 75 mcg tablet Take 1 tablet (75 mcg total) by mouth lumber straightened before breakfast 02/01/20 25 Active pravastatin (PRAVACHOL) 40 mg tablet Take 1 tablet (40 mg total) by mouth daily 12/21/19 25 Active acetaminophen 500 mg capsule Take 2 capsules (1,000 mg total) by mouth every 6 (six) hours 30 tablet 02/17/20 25 Active cholecalciferol (VITAMIN D-3) 2000 unit capsule Take 1 capsule (2,000 Units total) by mouth daily 30 capsule 11 02/17/20 25 026 Active polyethylene glycol (MIRALAX) 17 gram/dose bulk powder Take 17 g by mouth daily 116 g 02/17/20 25 Active senna (SENOKOT) 8.6 mg tabletIndicatio ns:constipation Take 2 tablets by mouth 2 (two) times a day 120 tablet 02/17/20 25 Active oxyCODONE (ROXICODONE) 5 mg immediate release tabletIndicatio ns:Pain Take 1 tablet (5 mg total) by mouth every 3 (three) hours as needed for pain 15 tablet 02/17/20 25 Active lidocaine (LIDODERM) 5 % Place 1 patch on the skin daily for 12 hours Remove & discard patch within 12 hours or as directed by MD. 30 patch 1 03/01/20 25 Active bisacodyL (DULCOLAX) 10 mg suppositoryIndi cations:constip ation,use one suppository per rectum each day as needed for bowel movemenrt Insert 1 suppository (10 mg total) into the rectum daily 12 suppository 03/01/20 25 Active Active Problems Problem Noted Date Diagnosed Date Hyponatremia 02/12/2025 Assessment & Plan (02/15/2025 10:27 AM CDT): 02/12 Na 130 fluid restriction 1.5 L, Gatorade, salt tab bid 02/13 Na 135 (128), continued fee water restriction. Held Salt tabs. 02/14 Na 135 Resolved Closed fracture of multiple ribs of right side 0 02/10/2025 Assessment & Plan (02/15/2025 10:31 AM CDT): # R ribs 2-8 rib fx # R hemoPTX - Right chest tube placed 02/09 -- water seal 02/10 - post water seal xr (02/10): small right apical pneumothorax was placed back to suction 02/11 chest tube to water seal, pending post 2 view imaging--> placed back on suction 02/12 Apical pneumo with a lateral component, will keep on suction, AM CXR 02/13-02/14: Chest tube to Waterseal 02/15 CT removed, post pull CXR - AM CXR Lumbar transverse process fracture 02/10/2025 Assessment & Plan (02/16/2025 10:03 AM CDT): # R L3 TP fx - Spine c/s not indicated - Follow up as needed with PCP Acute traumatic pain 02/10/2025 Assessment & Plan (02/15/2025 11:34 AM CDT): - Pain management consult - Bupivacaine epidural (02/09 - 02/15) - Tylenol 1g q6h - Oxycodone 2.5mg q4h PRN Hypertension 02/10/2025 Assessment & Plan (02/10/2025 3:01 PM CDT): - Home regimen: Norvasc and Hydrochlorothiazide Hyperlipidemia 02/10/2025 Assessment & Plan (02/10/2025 3:01 PM CDT): - Continue Pravastatin 40mg HS Discharge planning issues 02/10/2025 Assessment & Plan (02/15/2025 10:30 AM CDT): - 02/10: R CT to water seal, continue IS, pep treatments - 02/11-02/12 await PT/OT, chest tube to be d/c to be ready for discharge. - 02/14: Chest tube to waterseal, keep chest tube today. CM updated. - 02/15 Chest tube removed. Epidural to be removed today by pain service. Possible dc home tomorrow if CXR stable Treatment note completed Fall, initial encounter 02/09/2025 Assessment & Plan (02/11/2025 9:52 AM CDT): s/p fall down a couple stairs Resolved Problems Problem Noted Date Diagnosed Date Resolved Date Fracture of thoracic transverse process 02/10/2025 02/10/2025 Immunizations Immunization Administration Dates Next Due Tdap 02/09/2025(Deferred: No longer n eeded) Social History Tobacco Use Types Packs/Day Years Used Date Smoking Tobacco: Never Tobacco Cessation:Counseling Given: Not Answered AUDIT-C Answer Date Recorded Q1: How often do you have a drink containing alcohol? Never 03/01/2025 Q2: How many drinks containi ng alcohol do you have on a typical day when you are drinking? Patient does not drink Q3: How often do you have si x or more drinks on one occasion? Never 03/01/2025 Hunger Vital Sign Answer Date Recorded Within the past 12 months, y ou worried that your food would run out before you got the money to buy more. Never true 03/01/20 25 Within the past 12 months, t he food you bought just didn't last and you didn't have money to get more. Never true 03/01/2025 Personal Safety Answer Date Recorded Have you ever been in or are you currently in a harmful physical or emotional relationship or is someone making you feel afraid or unsafe? 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 Gender Identity Not on file Sexual Orientation Not on file Obstetrics History Last Filed Vital Signs Vital Sign Reading Time Taken Comments Blood Pressure 137/62 03/01/2025 10:24 AM CDT Pulse 87 03/01/2025 10:24 AM CDT Temperature 36.6 C (97.8 F) 03/01/2025 10:24 AM CDT Respiratory Rate 16 03/01/2025 10:24 AM CDT Oxygen Saturation 94% 03/01/2025 10:24 AM CDT Inhaled Oxygen Concentration - - Weight 70.3 kg (155 lb) 03/01/2025 10:24 AM CDT Height 157.5 cm (5' 2) 02/09/2025 5:00 PM CDT Body Mass Index 28.35 02/09/2025 5:00 PM CDT Plan of Treatment Health Maintenance Due Date Last Done Comments Depression Screening 1935 Osteoporosis Screening-Bone Density Scan 1937 DTaP/Tdap/Td Vaccine (1 - Tdap) 1948 Hepatitis B Screening 1955 Pneumococcal vaccine 65+ (1 of 1 - PCV) 1987 Zoster Vaccine (1 of 2) 1987 Well Visit 65+ 2002 Influenza Vaccine (#1) 2025 Fall Risk Assessment 02/16/2026 02/16/2025 Insurance [facility] Member Subscriber Plan / Payer (Ef fective 2020-Present) Name:Jeimy Romano Relation to Subscriber:Self Name:Jeimy Romano Payer ID:[id number] (NAIC) Type:MEDICARE RISK OTHER Address: [id number] [facility] Advance Directives For more information, please contact: [phone] * Full Code (Latest Code Status on File) Date Activated Date Inactivated Comments 02/09/2025 5:59 AM 02/16/2025 4:16 PM Care Teams Newscast Producer Relationship Specialty Start Date End Date Bryn Nicolas MD [address] [address] PCP - General Family Medicine 02/09/25 Miscellaneous, Not In File 02/16/25
== END 2025-06-30 13:30 | disposition home or self-care (01) ==
PROVIDERS: PCP Family Medicine; Visit Provider Family Medicine
DX: R73.01 Impaired fasting glucose (principal); I10 Essential (primary) hypertension; E03.9 Hypothyroidism, unspecified
CPT/HCPCS: 36415; 80053; 83036; 84443